=== PATIENT | female | born 1940 | race Caucasian/White ===

== ENCOUNTER 2017-10-04 19:32 | Observation (INO) ==
[2017-10-04] MEDS ORDERED: 0.9 % Sodium Chloride 1,000 ML IVC ONE (19:53)
[2017-10-04] MEDS ORDERED: Ondansetron 4 MG/2 ML VIAL IVP ONE (19:53)
[2017-10-04 20:19] LABS: Basophils % 0.1 %; Hematocrit 43.2 % (35.3-44.9); Hemoglobin 14.5 g/dL (11.5-15.4); Immature Granulocytes % 0.3 % (0-4); Lymphocytes # 0.9 K/mcL (0.6-4.6); Lymphocytes % 6.9 %; Mean Corpuscular HGB Conc 33.6 g/dL (31.6-35.5); Mean Corpuscular Hemoglobin 31.8 pg (28.0-33.3); Mean Corpuscular Volume 94.7 fL (83.0-100.0); Mean Platelet Volume 11.6 fL (9.4-12.4); Monocytes # 0.6 K/mcL (0.0-1.3); Monocytes % 4.2 %; Neutrophils # 11.5 K/mcL (1.6-8.9); Platelet Count 198 K/mcL (140-400); Red Blood Count 4.56 M/mcL (3.82-4.97); Red Cell Distribution Width 12.2 % (11.5-14.5); Segmented Neutrophils % 88.5 %
[2017-10-04 20:29] LABS: Bilirubin,Urine Negative (Negative); Blood,Urine Small (Negative); Clarity,Urine Clear (Clear); Color,Urine Yellow (Yellow); Glucose,Urine (UA) 100 mg/dL (Normal); Ketones,Urine 80 mg/dL (Negative); Leukocyte Esterase,Urine Negative (Negative); Nitrite,Urine Negative (Negative); Protein,Urine 100 mg/dL (Neg-Trace); Specific Gravity,Urine 1.019 (1.010-1.025); Urobilinogen,Urine Normal (Normal)
[2017-10-04 20:31] LABS: Bacteria,Urine None Seen per hpf (None-Few); Hyaline Casts,Urine None Seen per lpf (None-Few); RBC,Urine 15-30 per hpf (0-3); Squamous Epithelial Cell,Urine Many per lpf (None-Few); WBC,Urine 0-3 per hpf (0-3)
--- NOTE | 2017-10-04 20:32 | Emergency Department Note ---
Disposition Clinical Impression: Dehydration Disposition: Still a Patient Referrals: John Alanis DO [Primary Care Provider] - General Adult HPI - General Chief complaint: ED Weakness Stated complaint: Weakness Time Seen by Provider: 10/04/17 19:53 Source: patient, family, EMS Limitations: other - History of Present Illness Pain Scale: 0 - Related Data Home Medications Medication Instructions Recorded Confirmed Calcium Carbonate/Vitamin D3 1 each PO DAILY 04/16/15 04/16/15 [Calcium 500+D Tablet Chew] Donepezil [Aricept] 5 mg PO HS 04/16/15 04/16/15 Naproxen [Naprosyn] 220 mg PO Q12H 04/16/15 04/16/15 Raloxifene [Evista] 60 mg PO HS 04/16/15 04/16/15 Sertraline [Zoloft] 50 mg PO DAILY 04/16/15 04/16/15 Simvastatin [Zocor] 40 mg PO HS 04/16/15 04/16/15 Telmisartan [Micardis] 40 mg PO HS 04/16/15 04/16/15 Previous Rx's Medication Instructions Recorded HYDROcodone/Acet 5/325 mg [[place] 2 tab PO Q4H PRN #10 tablet 04/16/15 5-325 mg] Allergies Allergy/AdvReac Type Severity Reaction Status Date / Time No Known Allergies Allergy Verified 04/16/15 10:43 Past Medical History - Past Medical History Medical history: Reports: arthritis, hyperlipidemia, hypertension, osteoporosis Psychiatric history: Reports: depression 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 I agree with the documented findings, disposition and treatment plan as described except to the extent set forth below. I have personally performed a face to face evaluation on this patient. I have reviewed and agree with the care plan. Briefly: 68-year-old female by EMS from private home accompanied by family for "weakness and possible lethargy. Patient had a right eye surgery for retinal detachment with "gas bubble" was introduced into the eye and she is post lying in bed flat with her child face down. They noted this happened on the operation the past 24 hours the patient was just been tired on lack of energy or appetite no vomiting fevers chills shortness breath or chest pain patient denies dysuria. She appears dehydrated and weak but is responsive. Patient will be getting IV normal similar liter bolus screening labs chest x-ray anti- medics. Disposition pending. Time: 20:30 Vital Signs Temperature 98.0 F 10/04/17 19:37 Pulse Rate 68 10/04/17 19:37 Respiratory Rate 14 10/04/17 19:37 Blood Pressure 177/84 10/04/17 19:37 O2 Sat by Pulse Oximetry 99 10/04/17 19:37 Temperature 98.0 F 10/04/17 19:37 Pulse Rate 68 10/04/17 19:37 Respiratory Rate 14 10/04/17 19:37 Blood Pressure 177/84 10/04/17 19:37 O2 Sat by Pulse Oximetry 99 10/04/17 19:37 Oxygen Delivery Oxygen Delivery Room Air Medical Decision Making - Lab Data Result diagrams: 10/04/17 20:08 Lab Results 10/04/17 Range/Units 20:08 WBC 13.0 H (4.3-11.1) K/mcL RBC 4.56 (3.82-4.97) M/mcL Hgb 14.5 (11.5-15.4) g/dL Hct 43.2 (35.3-44.9) % MCV 94.7 (83.0-100.0) fL MCH 31.8 (28.0-33.3) pg MCHC 33.6 (31.6-35.5) g/dL RDW 12.2 (11.5-14.5) % Plt Count 198 (140-400) K/mcL MPV 11.6 (9.4-12.4) fL Immature Gran % 0.3 (0-4) % Seg Neutrophils % 88.5 % Lymphocytes % 6.9 % Monocytes % 4.2 % Eosinophils % 0.0 % Basophils % 0.1 % Neutrophils # 11.5 H (1.6-8.9) K/mcL Lymphocytes # 0.9 (0.6-4.6) K/mcL Monocytes # 0.6 (0.0-1.3) K/mcL Eosinophils # 0.0 (0.0-0.6) K/mcL Basophils # 0.0 (0.0-0.2) K/mcL
[2017-10-04 20:40] LABS: Alanine Aminotransferase 13 Units/L (7-52); Albumin 4.2 g/dL (3.5-5.7); Albumin/Globulin Ratio 1.8 (1.1-2.2); Alkaline Phosphatase 69 Units/L (34-104); Aspartate Amino Transferase 22 Units/L (13-39); BUN/Creatinine Ratio 15 (6-26); Bilirubin,Total 0.6 mg/dL (0.3-1.0); Blood Urea Nitrogen 9 mg/dL (8-23); Calcium 8.9 mg/dL (8.6-10.3); Carbon Dioxide 26 mEq/L (23-29); Chloride 99 mEq/L (98-107); Globulin 2.3 g/dL (2.4-3.5); Glucose 146 mg/dL (70-105); Osmolality,Calculated 275 (280-300); Potassium 4.1 mEq/L (3.5-5.1); Sodium 132 mEq/L (136-145); Total Protein 6.5 g/dL (6.4-8.9); eGFR For Non-African Americans > 60 (> 60)
[2017-10-04 20:41] LABS: Troponin I < 0.03 ng/mL (< 0.04)
--- NOTE | 2017-10-04 21:47 | Emergency Department Note ---
Disposition Clinical Impression: Dehydration, Weakness Disposition: Admitted As Inpatient Condition: Fair Time of Disposition: 21:51 General Adult HPI - General Chief complaint: ED Weakness Stated complaint: Weakness Time Seen by Provider: 10/04/17 19:53 Source: patient, family, EMS Mode of arrival: ambulatory Limitations: no limitations, other Nursing Notes Reviewed: Yes Vital Signs Reviewed: Yes - History of Present Illness HPI Narrative: Patient is a 76-year-old female with a past medical history of dementia and recent right eye surgery presenting to the emergency department by squad for the evaluation of generalized weakness associated with nausea and vomiting. According to family yesterday the patient was at her baseline and active and today she did not get out of bed and also had multiple episodes of dry heaving with no emesis. Patient states that she generally does not feel well denies any pain at this time but admits to nausea. Family states that patient is mentally at her baseline however she is weak. No focal neurological deficits, fevers, chills, chest pain, shortness of breath, abdominal pain, urinary symptoms or diarrhea. She is instructed to remain on her right side and lateral , position due to the procedure she had on her right eye for retinal detachment. Pain Scale: 0 - Related Data Home Medications Medication Instructions Recorded Confirmed Calcium Carbonate/Vitamin D3 1 each PO DAILY 04/16/15 04/16/15 [Calcium 500+D Tablet Chew] Donepezil [Aricept] 5 mg PO HS 04/16/15 04/16/15 Naproxen [Naprosyn] 220 mg PO Q12H 04/16/15 04/16/15 Raloxifene [Evista] 60 mg PO HS 04/16/15 04/16/15 Sertraline [Zoloft] 50 mg PO DAILY 04/16/15 04/16/15 Simvastatin [Zocor] 40 mg PO HS 04/16/15 04/16/15 Telmisartan [Micardis] 40 mg PO HS 04/16/15 04/16/15 Previous Rx's Medication Instructions Recorded HYDROcodone/Acet 5/325 mg [[place] 2 tab PO Q4H PRN #10 tablet 04/16/15 5-325 mg] Allergies Allergy/AdvReac Type Severity Reaction Status Date / Time No Known Allergies Allergy Verified 04/16/15 10:43 All systems ED: reviewed and negative except as stated. Review of Systems: As Per HPI Constitutional: Denies: fever, chills Cardiovascular: Denies: chest pain, palpitations Respiratory: Denies: cough, dyspnea Gastrointestinal: Reports: nausea. Denies: abdominal pain, vomiting, diarrhea Genitourinary: Denies: dysuria Integumentary: Denies: rash Neurological: Denies: headache, weakness, numbness, paresthesias, confusion, abnormal gait, vertigo Past Medical History - Past Medical History Attestation: Yes The following information was validated with the patient. 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 Patient has a patch over her right eye. Vital signs are within normal limits except patient is mildly hypertensive. She has appeared generally weak and is laying in bed with the blankets over her body rolled over on her side not highly interactive. HEAD: Normocephalic; atraumatic. EYES: PERRL, no scleral icterus. NOSE: The nose is normal in appearance without rhinorrhea RESP: Normal chest excursion with respiration; breath sounds clear and equal bilaterally; no wheezes, rhonchi, or rales CARD: Regular rhythm, without murmurs, rub or gallop ABD: Non-distended; non-tender, soft,without rigidity, rebound or guarding SKIN: Normal for age and race; warm and dry; no apparent lesions NEUROLOGICAL: Patient is alert and oriented times three. Cranial nerves III- XII are intact. Sensory and motor functions are intact. Strength is 5/5 for flexion and extension in all 4 extremities. Patellar DTRS are equal and intact. Finger to nose testing is equal and normal bilaterally. - General Limitations: other General appearance: alert Course Course Narrative: Plan this time is to evaluate the patient for weakness and search for any signs of infection such as a chest x-ray or urine. We will also evaluate electrolytes due to the family's concern of dehydration as well as a CBC. We will provide her with a liter of normal saline fluids. She has no focal deficits on exam and is oriented 3. Do not believe there is any concern for stroke at this time given that the patient is currently at her baseline with history of dementia. We will do our best to keep her situated on her right side due to her recent retinal surgery in which she had a gas bubble injected into her retina. 21:30 - discussed with the patient's family that her CBC, metabolic panel, EKG, chest x-ray and urine are all unremarkable for any signs of infection or abnormalities causing the patient to be weak or altered. Discussed with the family that the patient appears to have improved after the fluids and she is more awake and interacting. Family states that they think she is at baseline. However after conversations with family they state that they are concerned that they are having a difficult time taking care of her at home with her dementia and that they feel that they need a break or assistance with her in the home and over comfortable taking her home at this time. Discussed plan to admit the patient for social reasons in which she can undergo consultation with a social science professor for placement or home assistance. Vital Signs Temperature 98.0 F 10/04/17 19:37 Pulse Rate 68 10/04/17 19:37 Respiratory Rate 14 10/04/17 19:37 Blood Pressure 177/84 10/04/17 19:37 O2 Sat by Pulse Oximetry 99 10/04/17 19:37 Temperature 98.3 F 10/04/17 23:33 Pulse Rate 74 10/04/17 23:33 Respiratory Rate 15 10/04/17 23:33 Blood Pressure 166/91 10/04/17 23:33 O2 Sat by Pulse Oximetry 92 10/04/17 23:33 Oxygen Delivery Oxygen Delivery Room Air Medical Decision Making - Medical Records Medical records reviewed: Yes I reviewed the patient's medical records. - Lab Data Lab results reviewed: Yes I reviewed the patient's lab results. Result diagrams: 10/04/17 20:08 10/04/17 20:08 Lab Results 10/04/17 10/04/17 10/04/17 Range/Units 20:08 20:08 20:08 WBC 13.0 H (4.3-11.1) K/mcL RBC 4.56 (3.82-4.97) M/mcL Hgb 14.5 (11.5-15.4) g/dL Hct 43.2 (35.3-44.9) % MCV 94.7 (83.0-100.0) fL MCH 31.8 (28.0-33.3) pg MCHC 33.6 (31.6-35.5) g/dL RDW 12.2 (11.5-14.5) % Plt Count 198 (140-400) K/mcL MPV 11.6 (9.4-12.4) fL Immature Gran % 0.3 (0-4) % Seg Neutrophils % 88.5 % Lymphocytes % 6.9 % Monocytes % 4.2 % Eosinophils % 0.0 % Basophils % 0.1 % Neutrophils # 11.5 H (1.6-8.9) K/mcL Lymphocytes # 0.9 (0.6-4.6) K/mcL Monocytes # 0.6 (0.0-1.3) K/mcL Eosinophils # 0.0 (0.0-0.6) K/mcL Basophils # 0.0 (0.0-0.2) K/mcL Sodium 132 L (136-145) mEq/L Potassium 4.1 (3.5-5.1) mEq/L Chloride 99 (98-107) mEq/L Carbon Dioxide 26 (23-29) mEq/L BUN 9 (8-23) mg/dL Creatinine 0.59 L (0.60-1.20) mg/dL Est GFR ( Amer) > 60 (> 60) Est GFR (Non-Af Amer) > 60 (> 60) BUN/Creatinine Ratio 15 (6-26) Glucose 146 H (70-105) mg/dL Calculated Osmolality 275 L (280-300) Lactic Acid 1.8 (0.5-2.2) mmol/L Calcium 8.9 (8.6-10.3) mg/dL Total Bilirubin 0.6 (0.3-1.0) mg/dL AST 22 (13-39) Units/L ALT 13 (7-52) Units/L Alkaline Phosphatase 69 (34-104) Units/L Troponin I < 0.03 (< 0.04) ng/mL Serum Total Protein 6.5 (6.4-8.9) g/dL Albumin 4.2 (3.5-5.7) g/dL Globulin 2.3 L (2.4-3.5) g/dL Albumin/Globulin Ratio 1.8 (1.1-2.2) Urine Color (Yellow) Urine Clarity (Clear) Urine pH (5.0-8.0) pH Units Ur Specific [place] (1.010-1.025) Urine Protein (Neg-Trace) mg/dL Urine Glucose (UA) (Normal) mg/dL Urine Ketones (Negative) mg/dL Urine Blood (Negative) Urine Nitrite (Negative) Urine Bilirubin (Negative) Urine Urobilinogen (Normal) mg/dL Ur Leukocyte Esterase (Negative) Urine Microscopic RBC (0-3) per hpf Urine Microscopic WBC (0-3) per hpf Ur Squamous Epith Cells (None-Few) per lpf Urine Bacteria (None-Few) per hpf Hyaline Casts (None-Few) per lpf Ur Culture Indicated? (NO) 10/04/17 Range/Units 20:22 WBC (4.3-11.1) K/mcL RBC (3.82-4.97) M/mcL Hgb (11.5-15.4) g/dL Hct (35.3-44.9) % MCV (83.0-100.0) fL MCH (28.0-33.3) pg MCHC (31.6-35.5) g/dL RDW (11.5-14.5) % Plt Count (140-400) K/mcL MPV (9.4-12.4) fL Immature Gran % (0-4) % Seg Neutrophils % % Lymphocytes % % Monocytes % % Eosinophils % % Basophils % % Neutrophils # (1.6-8.9) K/mcL Lymphocytes # (0.6-4.6) K/mcL Monocytes # (0.0-1.3) K/mcL Eosinophils # (0.0-0.6) K/mcL Basophils # (0.0-0.2) K/mcL Sodium (136-145) mEq/L Potassium (3.5-5.1) mEq/L Chloride (98-107) mEq/L Carbon Dioxide (23-29) mEq/L BUN (8-23) mg/dL Creatinine (0.60-1.20) mg/dL Est GFR ( Amer) (> 60) Est GFR (Non-Af Amer) (> 60) BUN/Creatinine Ratio (6-26) Glucose (70-105) mg/dL Calculated Osmolality (280-300) Lactic Acid (0.5-2.2) mmol/L Calcium (8.6-10.3) mg/dL Total Bilirubin (0.3-1.0) mg/dL AST (13-39) Units/L ALT (7-52) Units/L Alkaline Phosphatase (34-104) Units/L Troponin I (< 0.04) ng/mL Serum Total Protein (6.4-8.9) g/dL Albumin (3.5-5.7) g/dL Globulin (2.4-3.5) g/dL Albumin/Globulin Ratio (1.1-2.2) Urine Color Yellow (Yellow) Urine Clarity Clear (Clear) Urine pH 7.0 (5.0-8.0) pH Units Ur Specific [place] 1.019 (1.010-1.025) Urine Protein 100 H (Neg-Trace) mg/dL Urine Glucose (UA) 100 H (Normal) mg/dL Urine Ketones 80 H (Negative) mg/dL Urine Blood Small H (Negative) Urine Nitrite Negative (Negative) Urine Bilirubin Negative (Negative) Urine Urobilinogen Normal (Normal) mg/dL Ur Leukocyte Esterase Negative (Negative) Urine Microscopic RBC 15-30 H (0-3) per hpf Urine Microscopic WBC 0-3 (0-3) per hpf Ur Squamous Epith Cells Many H (None-Few) per lpf Urine Bacteria None Seen (None-Few) per hpf Hyaline Casts None Seen (None-Few) per lpf Ur Culture Indicated? NO (NO) - Radiology Data Radiology results reviewed: Yes I reviewed the patient's radiology results. Chest X-Ray 10/04/17 19:53 IMPRESSION: Approximately 13 mm pulmonary nodule within right lung apex. Recommend further evaluation with chest CT, which can be done as an outpatient. No radiographic evidence of acute cardiopulmonary process. Large hiatal hernia with air-fluid levels, new since 2005. This can also be evaluated on chest CT. D/ / 10/04/2017 20:52:29 Rick Cartwright MD / don Interpreting Provider: Rick Cartwright MD - EKG Data EKG #1 EKG attestation: Yes I reviewed and interpreted this EKG. EKG results narrative: EKG done at 19:42 shows sinus rhythm at a rate of 66 bpm. Normal axis. Right bundle branch block consistent with findings on old EKG. No signs of ST elevation, ST depression or Q waves present. No ischemic changes. Unchanged from old EKG done on 04/16/2015.
[2017-10-04] MEDS ORDERED: *HR* Midazolam HCl 2 MG/2 ML VIAL IVP ONE (22:35)
[2017-10-05] MEDS ORDERED: Ondansetron 4 MG/2 ML VIAL IVP PRN (00:10)
[2017-10-05] MEDS: 0.9 % Sodium Chloride 1,000 ML IVC SCH ×3 (00:27→17:40)
[2017-10-05] MEDS ORDERED: Naloxone 0.4 MG/ML INJ IVP PRN (01:00)
[2017-10-05] MEDS ORDERED: Acetaminophen 325 MG TABLET PO PRN (01:13)
--- NOTE | 2017-10-05 01:37 | Internal Med History&Physical ---
Date of Encounter: 10/04/17 Time of Encounter: 23:47 Internal Medicine - H&P: HPI Chief complaint: Generalized Weakness, Nausea, Vomiting Admitted From: Emergency Dept Plans for Post Hospital Care: Transfer Psych Facility History of present illness: Ms. Perez is a 76 year old female who presented to ED today via EMS for generalized weakness, nausea, and vomiting. Patient is somnolent and difficult to get history from at the time of my examination. She is alert and oriented x 2. Most of history is obtained from review of ED records. Patient was at baseline mentation and activity yesterday per family. Today, she had difficulty getting out of bed and had multiple episodes of dry-heaving. According to family, she is at baseline mentation, but with weakness. She recently had surgery on her right eye for retinal detachment. Workup in the ED was completely negative except for some mild dehydration. Patient seemed better after 1L NS bolus, and family agreed she was back to baseline. However, her , whom she lives with at home, stated that he has been having a hard time taking care of her at home with her dementia. He states that he either needs a break or assistance with her at home. He is not comfortable taking her home. ED physician wanted her admitted for social services technician consultation for home health vs SNF/psych placement. Patient was given dose of versed in ED before transfer to floor, and it looks like she is somnolent secondary to that. She is not agitated, but trying to get out of bed. Past Med Surg Social Fam HX - Past Medical History Source: unable to obtain (Unable to perform due to patient condition of dementia /somnolence.), old records reviewed Medical history: arthritis, dementia, hyperlipidemia, hypertension, osteoporosis Additional medical history: osteopenia. cataracts Psychiatric history: depression - Past Surgical History Additional surgical history: right eye surgery - Social History Smoking Status: Never smoker Smokeless Tobacco Status: No Alcohol use: none Drug use: none - Additional Family History Additional family history: Unable to obtain family history from patient due to patient condition of dementia/somnolence. Internal Medicine - H&P: Meds Calcium Carbonate/Vitamin D3 [Calcium 500+D Tablet Chew] 1 each PO DAILY [History] Donepezil [Aricept] 5 mg PO HS 04/16/15 [History] HYDROcodone/Acet 5/325 mg [[place] 5-325 mg] 2 tab PO Q4H PRN #10 tablet 04/16/15 [Rx] Naproxen [Naprosyn] 220 mg PO Q12H 04/16/15 [History] Raloxifene [Evista] 60 mg PO HS 04/16/15 [History] Sertraline [Zoloft] 50 mg PO DAILY 04/16/15 [History] Simvastatin [Zocor] 40 mg PO HS 04/16/15 [History] Telmisartan [Micardis] 40 mg PO HS 04/16/15 [History] 3 Allergy/AdvReac Type Severity Reaction Status Date / Time No Known Allergies Allergy Verified 04/16/15 10:43 All Systems PM: Unable to perform ROS due to patient condition of dementia/somnolence. - Constitutional Vitals: Temp Pulse Resp BP Pulse Ox 98.3 F 74 15 166/91 92 10/04/17 23:33 10/04/17 23:33 10/04/17 23:33 10/04/17 23:33 10/04/17 23:33 General appearance: Present: A&O X 2, no acute distress, underweight. Absent: cooperative, answers questions appropriately - Head Head exam: Present: atraumatic, normocephalic - Eye Additional comments: Right eye with gauze patch over it, unable to fully examine due to patient condition of dementia/somnolence. - ENT Additional comments: Unable to fully examine due to patient condition of dementia/somnolence. - Neck Neck exam general surgery: Present: supple, trachea midline. Absent: lymphadenopathy, tenderness, thyromegaly - Respiratory Respiratory exam: Present: CTAB. Absent: accessory muscle use, rales, rhonchi, wheezes Additional comments: Normal WOB - Cardiovascular Cardiovascular exam: Present: RRR, +S1, +S2. Absent: diastolic murmur, gallop, rubs, systolic murmur Additional comments: No BLE edema - GI/Abdominal GI/Abdominal exam: Present: normal bowel sounds, soft. Absent: distended, hepatomegaly, mass, splenomegaly, tenderness - Neurological Exam Neurological exam: Present: altered, no focal deficits, strengths equal and symetr throughout. Absent: facial droop, speech deficit Additional comments: Unable to fully examine due to patient condition of dementia/somnolence. - Psychiatric Psychiatric exam: Absent: agitated, anxious, depressed Additional comments: Unable to fully examine due to patient condition of dementia/somnolence. - Skin Skin exam: Present: dry, intact, warm. Absent: cyanosis, rash Internal Med - H&P Results - Labs CBC & Chem 7: 10/04/17 20:08 10/04/17 20:08 - Assessment and plan (1) Dehydration Current Visit: Yes Status: Acute Assessment and plan: Continue IV NS at 125 ml/hr. Watch for signs of fluid overload. Recheck labwork in AM. (2) Weakness Current Visit: Yes Status: Acute Assessment and plan: Likely related to dehydration, as she improved with NS bolus in ED. Will obtain PT/OT consult. Will consult SW for SNF/psych placement vs home health. (3) Dementia Current Visit: Yes Status: Chronic Assessment and plan: Patient seems to have progressive interval worsening of her chronic dementia per . At this time, she is somnolent due to receiving versed in ED prior to transfer to floor, so I am unable to fully evaluate her mentation. She not agitated, but trying to get out of bed. Will order 1-on-1 sitter for safety. Start neurochecks Q4H. Will obtain TSH, UDS, and repeat BMP/CBC in AM. Will consult psychiatry in the AM, as she may need evaluation for possible transfer to inpatient geriatric psychiatry. SW has been consulted for discharge planning as per above. Continue home medications after verification. Qualifiers: Dementia type: unspecified type Dementia behavioral disturbance: with behavioral disturbance Qualified Code(s): F03.91 - Unspecified dementia with behavioral disturbance (4) Nausea and vomiting Current Visit: Yes Status: Acute Assessment and plan: Looks to be improved at this time. Start zofran IV PRN nausea/vomiting. Qualifiers: Vomiting type: unspecified Vomiting Intractability: unspecified Qualified Code(s): R11.2 - Nausea with vomiting, unspecified (5) HTN (hypertension) Current Visit: Yes Status: Chronic Assessment and plan: Continue home medications after verification. Qualifiers: Hypertension type: essential hypertension Qualified Code(s): I10 - Essential (primary) hypertension (6) HLD (hyperlipidemia) Current Visit: Yes Status: Chronic Assessment and plan: Continue home medications after verification. Qualifiers: Hyperlipidemia type: mixed hyperlipidemia Qualified Code(s): E78.2 - Mixed hyperlipidemia (7) Arthritis Current Visit: Yes Status: Chronic Assessment and plan: Continue home medications after verification. (8) DVT prophylaxis Current Visit: Yes Status: Acute Assessment and plan: Start SCDs and lovenox 40 mg SQ QD. - Time Spent With Patient Total time spent is greater than 50% in coordination of care (as documented) at patient's floor/unit and/or counseling patient: less than 15 minutes
[2017-10-05 04:46] LABS: Basophils % 0.1 %; Hematocrit 42.8 % (35.3-44.9); Hemoglobin 14.3 g/dL (11.5-15.4); Immature Granulocytes % 1.1 % (0-4); Lymphocytes # 1.4 K/mcL (0.6-4.6); Lymphocytes % 9.7 %; Mean Corpuscular HGB Conc 33.4 g/dL (31.6-35.5); Mean Corpuscular Hemoglobin 31.9 pg (28.0-33.3); Mean Corpuscular Volume 95.5 fL (83.0-100.0); Mean Platelet Volume 12.1 fL (9.4-12.4); Monocytes # 1.1 K/mcL (0.0-1.3); Monocytes % 7.6 %; Platelet Count 224 K/mcL (140-400); Red Blood Count 4.48 M/mcL (3.82-4.97); Red Cell Distribution Width 12.2 % (11.5-14.5); Segmented Neutrophils % 81.5 %
[2017-10-05 05:09] LABS: BUN/Creatinine Ratio 13 (6-26); Blood Urea Nitrogen 7 mg/dL (8-23); Calcium 8.6 mg/dL (8.6-10.3); Carbon Dioxide 23 mEq/L (23-29); Chloride 98 mEq/L (98-107); Glucose 122 mg/dL (70-105); Osmolality,Calculated 271 (280-300); Potassium 3.6 mEq/L (3.5-5.1); Sodium 131 mEq/L (136-145); eGFR For Non-African Americans > 60 (> 60)
[2017-10-05 05:20] LABS: Thyroid Stimulating Hormone 0.723 mcIU/mL (0.340-5.600)
[2017-10-05] MEDS: *HR* Enoxaparin 40 MG/0.4 ML SYRINGE SQ SCH (06:00)
--- NOTE | 2017-10-05 15:58 | Event Note ---
Date of Encounter: 10/05/17 Time of Encounter: 15:52 78-year-old female with past medical history of advanced stage of dementia and recent eye surgery presented with poor oral intake and weakness. Family also reported nausea and vomiting. Patient recent was diagnosed with retinal detachment and surgery was performed at [facility]. Per family, patient mental status has progressively worsened in the past 1 year. her oral intake has significantly decreased in the Past couple days. At the ED, she appears dehydrated, labs revealed mild leukocytosis. Chest x-ray no acute change. She does not have sufficient care at home, so social service was consulted. - Patient symptoms slightly improved with IV hydration. She will likely need ECF placement, however, PT recommended home health care. SS following. - Although she has had a leukocytosis, however, no infectious source was identified at this time. - Continue supportive care, continue IV fluid.
[2017-10-05] MEDS: PrednisoLONE Acetate 1% Opth 5 ML BOTTLE RIGHT EYE SCH ×2 (16:24→20:05)
[2017-10-05] MEDS: Moxifloxacin OPTH Drops 3 ML BOTTLE RIGHT EYE SCH ×2 (16:24→20:05)
--- NOTE | 2017-10-05 17:20 | Electrocardiograph Report ---
[place] [id number] Test Date: 2017-10-04 Pat Name: Paulette Perez Department: 103 Room: 3B46 Gender: F [employer] B[employer]: JOSE : [id number] Requested By: Tawanda Milan Order Number: [id number] Reading MD: Marlen Cook Measurements Intervals [place] Rate: 66 P: 74 ME: 139 QRS: 75 QRSD: 152 T: 58 QT: 467 QTc: 481 Interpretive Statements SINUS RHYTHM RIGHT BUNDLE BRANCH BLOCK [120+ ms QRS DURATION, UPRIGHT V1, 40+ ms S IN I/aVL/V4/V5/V6] Electronically Signed On 10-05-2017 17:18:55 EDT by Marlen Cook
[2017-10-05] MEDS: Atropine 1% Opth Drops 100 DROP/5 ML BOTTLE OP SCH (20:04)
--- NOTE | 2017-10-05 21:34 | Consult Note ---
Date of Encounter: 10/05/17 Time of Encounter: 19:30 Assessment & Recommendation (1) Delirium due to known physiological condition Current visit: Yes Status: Acute (2) Dementia with behavioral disturbance Current visit: Yes Status: Acute Qualifiers: Dementia type: unspecified type Qualified Code(s): F03.91 - Unspecified dementia with behavioral disturbance History of Present Illness Patient: new to practice Requesting Physician: Alex Nieves Reason for consult: dementia vs depresion History of present illness: Ms. Perez is a 76 year old female The patient is a 76-year-old white female. She is accompanied by her daughter. Chief complaint my will feed the dog. History of present illness the patient was admitted for an ophthalmologic evaluation. She had eye surgery but then developed a worsening of her depression. She is not a good historian but her daughter is. Basically the patient had a dementia but was able to dial family members on the phone able to maneuver through familiar environments and was able to take some basic needs for herself however after her eye surgery she suffered a precipitous decline and was much more confused. The patient has been treated for dementia for the past 5 years. However the patient's Aricept was switched to Razadyne. The patient is currently on 4 mg twice a day of Razadyne and has not the improvement the patient has been on Zoloft for years and this is helped. Throughout the period of time there is been a gradual decline in her ability to function but events of the past week or more precipitous. The patient is not eating she has had weight loss. She is not interested in some for self-care. The patient may have had depression in the past but her current presentation is of a rapid decline. She does have a left arm that shakes from time to time. When asked the patient will say that she is eaten when she is not she is overall abulic and has not taken care of herself. The patient does have 2 dogs at home and spends time with them and does not like to be away from them. The daughter's assessment was the patient may not do as well outside of the home environment. CC: Alex Nieves Past Med Surg Social Fam HX - Past Medical History Medical history: arthritis, dementia, hyperlipidemia, hypertension, osteoporosis - Past Psychiatric History Psychiatric history: Reports: other Family psychiatric history: Yes Family History of Suicide: Unknown - Past Surgical History Surgical History: other - Social History Smoking Status: Never smoker Smokeless Tobacco Status: No Alcohol use: none Drug use: none Occupational status: retired Current living situation: Home, With Family Activity Level: Mostly sedentary Recent Out of Country Travel Within the Last 8 Weeks: No Exposure or Possible Exposure to Illness During Travel: No Medications & Allergies Calcium Carbonate/Vitamin D3 [Calcium 500+D Tablet Chew] 1 each PO DAILY [History] Raloxifene [Evista] 60 mg PO HS 04/16/15 [History] Sertraline [Zoloft] 50 mg PO DAILY 04/16/15 [History] Simvastatin [Zocor] 40 mg PO HS 04/16/15 [History] Atropine 1% Opth Drops 1 drop BID 10/05/17 [History] Galantamine HBr [Razadyne] 4 mg PO BID 10/05/17 [History] Moxifloxacin OPTH Drops [Vigamox] 1 drop RIGHT EYE QID 10/05/17 [History] PrednisoLONE Acetate [Prednisolone Acetate] 1 drop OP QID 10/05/17 [History] 3 Allergy/AdvReac Type Severity Reaction Status Date / Time No Known Allergies Allergy Verified 04/16/15 10:43 Review of Systems Psychiatric: Reports: abnormal sleep pattern, change in appetite, confusion Psychiatry Exam - Constitutional Vitals: Temp Pulse Resp BP Pulse Ox 98.4 F 72 16 179/76 96 10/05/17 19:30 10/05/17 20:50 10/05/17 19:30 10/05/17 20:50 10/05/17 19:30 General appearance: age & developmentally appropriate, unkempt, thin - Psychiatric Patient Orientation: Yes Person, Yes Circumstance Level of alertness: Alert Psychomotor activity: Slowed Eye Contact: No Eye Contact Affect description: congruent with mood Speech Volume: Normal Speech pattern: normal rate Language & Vocabulary: consistent with education Thought Process: Intact, Logical, Thought Blocking, [place], Slowed Thinking Thought Content: Yes Intact Perceptual Disturbances: No Auditory hallucinations, No Visual hallucinations Attention Span Ability: Unable to Sustain Attention Fund of knowledge: Yes below average Intelligence Estimate: Below Average Judgment: Limited Insight: Minimal Results - Labs Labs: Laboratory Last Values WBC 14.7 K/mcL (4.3-11.1) H 10/05/17 03:36 RBC 4.48 M/mcL (3.82-4.97) 10/05/17 03:36 Hgb 14.3 g/dL (11.5-15.4) 10/05/17 03:36 Hct 42.8 % (35.3-44.9) 10/05/17 03:36 MCV 95.5 fL (83.0-100.0) 10/05/17 03:36 MCH 31.9 pg (28.0-33.3) 10/05/17 03:36 MCHC 33.4 g/dL (31.6-35.5) 10/05/17 03:36 RDW 12.2 % (11.5-14.5) 10/05/17 03:36 Plt Count 224 K/mcL (140-400) 10/05/17 03:36 MPV 12.1 fL (9.4-12.4) 10/05/17 03:36 Immature Gran % 1.1 % (0-4) 10/05/17 03:36 Seg Neutrophils % 81.5 % 10/05/17 03:36 Lymphocytes % 9.7 % 10/05/17 03:36 Monocytes % 7.6 % 10/05/17 03:36 Eosinophils % 0.0 % 10/05/17 03:36 Basophils % 0.1 % 10/05/17 03:36 Neutrophils # 12.0 K/mcL (1.6-8.9) H 10/05/17 03:36 Lymphocytes # 1.4 K/mcL (0.6-4.6) 10/05/17 03:36 Monocytes # 1.1 K/mcL (0.0-1.3) 10/05/17 03:36 Eosinophils # 0.0 K/mcL (0.0-0.6) 10/05/17 03:36 Basophils # 0.0 K/mcL (0.0-0.2) 10/05/17 03:36 Sodium 131 mEq/L (136-145) L 10/05/17 03:36 Potassium 3.6 mEq/L (3.5-5.1) 10/05/17 03:36 Chloride 98 mEq/L (98-107) 10/05/17 03:36 Carbon Dioxide 23 mEq/L (23-29) 10/05/17 03:36 BUN 7 mg/dL (8-23) L 10/05/17 03:36 Creatinine 0.53 mg/dL (0.60-1.20) L 10/05/17 03:36 Est GFR ( Amer) > 60 (> 60) 10/05/17 03:36 Est GFR (Non-Af Amer) > 60 (> 60) 10/05/17 03:36 BUN/Creatinine Ratio 13 (6-26) 10/05/17 03:36 Glucose 122 mg/dL (70-105) H 10/05/17 03:36 Calculated Osmolality 271 (280-300) L 10/05/17 03:36 Lactic Acid 1.8 mmol/L (0.5-2.2) 10/04/17 20:08 Calcium 8.6 mg/dL (8.6-10.3) 10/05/17 03:36 Magnesium 2.0 mg/dL (1.6-2.6) 10/05/17 03:36 Total Bilirubin 0.6 mg/dL (0.3-1.0) 10/04/17 20:08 AST 22 Units/L (13-39) 10/04/17 20:08 ALT 13 Units/L (7-52) 10/04/17 20:08 Alkaline Phosphatase 69 Units/L (34-104) 10/04/17 20:08 Troponin I < 0.03 ng/mL (< 0.04) 10/04/17 20:08 Serum Total Protein 6.5 g/dL (6.4-8.9) 10/04/17 20:08 Albumin 4.2 g/dL (3.5-5.7) 10/04/17 20:08 Globulin 2.3 g/dL (2.4-3.5) L 10/04/17 20:08 Albumin/Globulin Ratio 1.8 (1.1-2.2) 10/04/17 20:08 TSH 0.723 mcIU/mL (0.340-5.600) 10/05/17 03:36 Urine Color Yellow (Yellow) 10/04/17 20:22 Urine Clarity Clear (Clear) 10/04/17 20:22 Urine pH 7.0 pH Units (5.0-8.0) 10/04/17 20:22 Ur Specific [place]man 1.019 (1.010-1.025) 10/04/17 20:22 Urine Protein 100 mg/dL (Neg-Trace) H 10/04/17 20:22 Urine Glucose (UA) 100 mg/dL (Normal) H 10/04/17 20:22 Urine Ketones 80 mg/dL (Negative) H 10/04/17 20:22 Urine Blood Small (Negative) H 10/04/17 20:22 Urine Nitrite Negative (Negative) 10/04/17 20:22 Urine Bilirubin Negative (Negative) 10/04/17 20:22 Urine Urobilinogen Normal mg/dL (Normal) 10/04/17 20:22 Ur Leukocyte Esterase Negative (Negative) 10/04/17 20:22 Urine Microscopic RBC 15-30 per hpf (0-3) H 10/04/17 20:22 Urine Microscopic WBC 0-3 per hpf (0-3) 10/04/17 20:22 Ur Squamous Epith Cells Many per lpf (None-Few) H 10/04/17 20:22 Urine Bacteria None Seen per hpf (None-Few) 10/04/17 20:22 Hyaline Casts None Seen per lpf (None-Few) 10/04/17 20:22 Ur Culture Indicated? NO (NO) 10/04/17 20:22 Consult Discharge Plan - Plan Referrals: John Alanis DO [Primary Care Provider] - 10/07/17 9:00 am
[2017-10-06] MEDS: 0.9 % Sodium Chloride 1,000 ML IVC SCH ×2 (03:01→08:46)
[2017-10-06] MEDS: *HR* Enoxaparin 40 MG/0.4 ML SYRINGE SQ SCH (05:31)
[2017-10-06 06:15] LABS: Basophils % 0.2 %; Eosinophils % 0.1 %; Hematocrit 41.3 % (35.3-44.9); Immature Granulocytes % 0.2 % (0-4); Lymphocytes # 1.6 K/mcL (0.6-4.6); Lymphocytes % 14.9 %; Mean Corpuscular HGB Conc 33.9 g/dL (31.6-35.5); Mean Corpuscular Hemoglobin 31.3 pg (28.0-33.3); Mean Corpuscular Volume 92.4 fL (83.0-100.0); Mean Platelet Volume 12.1 fL (9.4-12.4); Monocytes # 0.9 K/mcL (0.0-1.3); Monocytes % 8.6 %; Neutrophils # 8.2 K/mcL (1.6-8.9); Platelet Count 213 K/mcL (140-400); Red Blood Count 4.47 M/mcL (3.82-4.97); Red Cell Distribution Width 12.2 % (11.5-14.5)
[2017-10-06 06:32] LABS: BUN/Creatinine Ratio 15 (6-26); Blood Urea Nitrogen 8 mg/dL (8-23); Carbon Dioxide 25 mEq/L (23-29); Chloride 100 mEq/L (98-107); Glucose 110 mg/dL (70-105); Osmolality,Calculated 279 (280-300); Sodium 135 mEq/L (136-145); eGFR For Non-African Americans > 60 (> 60)
[2017-10-06] MEDS: Atropine 1% Opth Drops 100 DROP/5 ML BOTTLE OP SCH (08:45)
[2017-10-06] MEDS: Moxifloxacin OPTH Drops 3 ML BOTTLE RIGHT EYE SCH (08:45)
[2017-10-06] MEDS: PrednisoLONE Acetate 1% Opth 5 ML BOTTLE RIGHT EYE SCH (08:45)
[2017-10-06] MEDS ORDERED: CALCIUM CARBONATE PO SCH (09:00)
[2017-10-06] MEDS ORDERED: VITAMIN D3 PO SCH (09:00)
[2017-10-06 09:31] LABS: Amphetamine Screen,Urine Negative ng/mL (Cutoff=1000); Barbiturate Screen,Urine Negative ng/mL (Cutoff=200); Benzodiazepines Screen,Urine Negative ng/mL (Cutoff=200); Cannabinoid Screen,Urine Negative ng/mL (Cutoff = 50); Cocaine Screen,Urine Negative ng/mL (Cutoff= 300); Opiate Screen,Urine Negative ng/mL (Cutoff=300); Phencyclidine Screen,Urine Negative ng/mL (Cutoff=25)
--- NOTE | 2017-10-06 12:11 | Discharge Summary ---
- NOTES TO OUTPATIENT PROVIDER Notes to Outpatient Provider: Titrate Namenda- 5mg po BID x 1 week, 10mg po daily x 1 week, then 10mg po BID if tolerated. Titrate Razadyne- 8mg po BID for 30 days, then may be incrased to 12mg po BID, can cause nausea and dizziness. We also discussed Megace for poor po intake, can start at your discretion once at SNF. Date of Encounter: 10/06/17 Time of Encounter: 09:20 - Discharge Diagnosis (1) Dehydration Priority: Secondary Status: Resolved Assessment and Plan: Secondary to nausea and vomiting, as well as chronically poor po intake per history. Improved, pt appears to be euvolemic, labs are stable. Continue to encourage po fluid intake after discharge. (2) Weakness Priority: Secondary Status: Acute Assessment and Plan: Likely related to dehydration, as she improved with NS bolus in ED. Pt will be discharged for PT/OT at [facility]. (3) Dementia Priority: Secondary Status: Chronic Assessment and Plan: Patient seems to have progressive worsening of her chronic dementia per daughter this a.m, daughter states that she has become increasingly worse over the last year. Pt is drowsy, but awakens easily and answers questions appropriately. Pt has been evaluated by psychiatry, Namenda has been added and will be titrated over 2 weeks to maximum dose. Continue to monitor for safety. Qualifiers: Dementia type: unspecified type Dementia behavioral disturbance: with behavioral disturbance Qualified Code(s): F03.91 - Unspecified dementia with behavioral disturbance (4) Nausea and vomiting Priority: Primary Status: Acute Assessment and Plan: Resolved. Qualifiers: Vomiting type: unspecified Vomiting Intractability: unspecified Qualified Code(s): R11.2 - Nausea with vomiting, unspecified (5) HTN (hypertension) Priority: Secondary Status: Chronic Assessment and Plan: Continue home medications, well controlled in the hospital. Qualifiers: Hypertension type: essential hypertension Qualified Code(s): I10 - Essential (primary) hypertension (6) HLD (hyperlipidemia) Priority: Secondary Status: Chronic Assessment and Plan: Chronic. Continue home medications. Qualifiers: Hyperlipidemia type: mixed hyperlipidemia Qualified Code(s): E78.2 - Mixed hyperlipidemia (7) Arthritis Priority: Secondary Status: Chronic Assessment and Plan: Continue home medications. Chronic. (8) DVT prophylaxis Priority: Secondary Status: Acute Assessment and Plan: Start SCDs and lovenox 40 mg SQ QD. Hospital course: Ms. Perez is a 76 year old female with past medical history including dementia , hypertension, hyperlipidemia, arthritis. Patient admitted for nausea and vomiting, dehydration, weakness. Patient had recent detached retina with surgical repair 5 days ago, family reports declining since that time. She was found at home to nausea and vomiting 3 days ago at home, as well as encephalopathy, was unable to recover with by mouth fluids at home. She was brought to the emergency department for admission. Labs and vitals remained stable throughout, mentation has returned to baseline. Family reports overall decline in mentation over the last year, as well as poor by mouth intake. Patient will be discharged to SNF for physical therapy with the intent to return home. Discharge discussed with: patient, family - Time Spent with Patient Total time spent providing and/or coordinating discharge services: Less than 30 minutes - Discharge Medications Prescriptions: Galantamine [Razadyne] 8 mg PO BID #14 tablet Memantine [Namenda] 5 mg PO BID #10 tablet Home Medications: Calcium Carbonate/Vitamin D3 [Calcium 500+D Tablet Chew] 1 each PO DAILY [History] Raloxifene [Evista] 60 mg PO HS 04/16/15 [History] Sertraline [Zoloft] 50 mg PO DAILY 04/16/15 [History] Simvastatin [Zocor] 40 mg PO HS 04/16/15 [History] Atropine 1% Opth Drops 1 drop BID 10/05/17 [History] Galantamine HBr [Razadyne] 4 mg PO BID 10/05/17 [History] Moxifloxacin OPTH Drops [Vigamox] 1 drop RIGHT EYE QID 10/05/17 [History] PrednisoLONE Acetate [Prednisolone Acetate] 1 drop OP QID 10/05/17 [History] Galantamine [Razadyne] 8 mg PO BID #14 tablet 10/06/17 [Rx] Memantine [Namenda] 5 mg PO BID #10 tablet 10/06/17 [Rx] Potassium Chloride 40 meq PO DAILY tab.er.prt 10/06/17 [Rx] Allergies/Adverse Reactions: 3 Allergy/AdvReac Type Severity Reaction Status Date / Time Sulfa (Sulfonamide Allergy unknown Verified 10/06/17 07:09 Antibiotics) Date of admission: 10/04/17 21:58 Primary care physician: John Alanis Consults: 10/05/17 00:10 Consult to Occupational Therapy [CONS] Routine Comment: Evaluate, develop and implement POC Reason for Consult: Dementia. Please evaluate, treat, and make rehab recommendations. Long Term vs Home Health. Thanks. Does patient have active BEDREST order?: No Is patient medically & hemodynamically stable?: Yes Patient assessed for mobility or mobilized this visit?: No Consult to Physical Therapy [CONS] Routine Comment: Evaluate, develop and implement POC Reason for Consult: Dementia. Please evaluate, treat, and make rehab recommendations. Long Term vs Home Health. Thanks. Does patient have active BEDREST order?: No Is patient medically & hemodynamically stable?: Yes Patient assessed for mobility or mobilized this visit?: No Consult to Physical Therapist Aide [CONS] Routine Reason for SW Consult: Long Term Placement vs Home Health 10/05/17 00:53 Consult to Psychiatry [CONS] Routine Consulting Provider: Psychiatry Gianna Reason consult: Sitter/1:1 Altered mental status Agitation Confusion Medication recommendation Other Other reason and/or additional details: Worsening Dementia. Determine need for inpatient geriatric psychiatry. Call Completed: No 10/05/17 01:01 Consult for Pharmacy Education [CONS] Stat Reason for Consult: Please verify home medications. Notify MD when this is completed. Thanks. Call Completed: No Discharging clinician: Larisa Joseph Anticipated date of discharge: 10/06/17 - Constitutional Vitals: Temp Pulse Resp BP Pulse Ox 98.2 F 66 18 155/79 94 10/06/17 11:47 10/06/17 11:47 10/06/17 11:47 10/06/17 11:47 10/06/17 11:47 General appearance: Present: cooperative, A&O X 2, pleasant, no acute distress, underweight, answers questions appropriately - Head Head exam: Present: atraumatic, normal inspection, normocephalic - Eye Eye exam: Present: normal appearance, conjuntiva pink, sclera anicteric - Neck Neck exam general surgery: Present: supple, trachea midline. Absent: lymphadenopathy, tenderness - Respiratory Respiratory exam: Present: CTAB. Absent: accessory muscle use, chest wall tenderness, rales, respiratory distress, rhonchi, wheezes - Cardiovascular Cardiovascular exam: Present: RRR, +S1, +S2. Absent: diastolic murmur, gallop, rubs, systolic murmur - GI/Abdominal GI/Abdominal exam: Present: normal bowel sounds, soft. Absent: distended, hepatomegaly, tenderness - Extremities Exam Extremities exam: Present: normal capillary refill, normal inspection, warm, radial pulses palpable and symmetrical. Absent: calf tenderness, cyanotic, pedal edema, tenderness - Neurological Exam Neurological exam: Present: alert, oriented X3, no focal deficits. Absent: facial droop, speech deficit - Skin Skin exam: Present: dry, intact, normal color, warm. Absent: rash - Patient Status Disposition: Transfer SNF Condition: Good Functional capacity at discharge: uses cane/walker Overall status at discharge: patient is progressing back to baseline - Discharge Instructions Follow Up With: John Alanis DO [Primary Care Provider] - 10/07/17 9:00 am Additional Instructions: See Provider notes for titration of Razadyne and Namenda Consider Megace once transferred to SNF. - Diet and Activity Activity: increase activity as tolerated Diet: low fat, low cholesterol
--- NOTE | 2017-10-06 14:47 | Physician Discharge Referral ---
ExtendedCare Referral Info Transfer To: [place] Provider in Charge after Transfer: PCP Institutional Level of Care: Intermediate - Diagnosis (1) Dehydration Priority: Primary Status: Resolved (2) Weakness Priority: Secondary Status: Acute (3) Dementia Priority: Secondary Status: Chronic (4) Nausea and vomiting Priority: Secondary Status: Acute (5) HTN (hypertension) Priority: Secondary Status: Chronic (6) HLD (hyperlipidemia) Priority: Secondary Status: Chronic (7) Arthritis Priority: Secondary Status: Chronic (8) DVT prophylaxis Priority: Secondary Status: Acute Prognosis: Fair - Transfer Medications Prescriptions: Galantamine [Razadyne] 8 mg PO BID #14 tablet Memantine [Namenda] 5 mg PO BID #10 tablet Home Medications: Calcium Carbonate/Vitamin D3 [Calcium 500+D Tablet Chew] 1 each PO DAILY [History] Raloxifene [Evista] 60 mg PO HS 04/16/15 [History] Sertraline [Zoloft] 50 mg PO DAILY 04/16/15 [History] Simvastatin [Zocor] 40 mg PO HS 04/16/15 [History] Atropine 1% Opth Drops 1 drop BID 10/05/17 [History] Galantamine HBr [Razadyne] 4 mg PO BID 10/05/17 [History] Moxifloxacin OPTH Drops [Vigamox] 1 drop RIGHT EYE QID 10/05/17 [History] PrednisoLONE Acetate [Prednisolone Acetate] 1 drop OP QID 10/05/17 [History] Galantamine [Razadyne] 8 mg PO BID #14 tablet 10/06/17 [Rx] Memantine [Namenda] 5 mg PO BID #10 tablet 10/06/17 [Rx] Potassium Chloride 40 meq PO DAILY tab.er.prt 10/06/17 [Rx] Allergies/Adverse Reactions: 3 Allergy/AdvReac Type Severity Reaction Status Date / Time Sulfa (Sulfonamide Allergy unknown Verified 10/06/17 07:09 Antibiotics) - Respiratory Orders Smoking Cessation: Smoking cessation has been advised. For more information, call the [place] Tobacco Quit Line at 8-616-HHHQ-NOW. - Lab Orders Lab Orders: 2 Step Mantoux Test per State regulation, CBC, U/A, Ian 17, CXR yearly - Ancillary Orders May use pressure relief devices daily prn, May consult with Dentist, Cloth Desizing Range Operator Chief, Construction Helper PRN - Advance Directives Code Status: Full Code - Mobility Orders Chair, Ambulate - Rehabiliation Orders Rehab Potential: Fair Rehab Orders: Sternal Precautions, ROM Exercises, Evaluation for Physical Therapy, Evaluation for Occupational Therapy - Treatments Skin tear care topically daily PRN per policy, May check for fecal impaction rectally daily PRN, Fleet enema rectally every other day PRN cleansing purposes - Diet Orders Regular CERTIFICATION: I certify that the transfer of the above named patient to an Extended Care Facility is necessary for the continuing treatment of the diagnosis listed. The above information is true and accurate reflection of patient's current condition. Confidential - Redisclosure prohibited without a patient's written consent.
[2017-10-06 15:30] VITALS: BP 152/85
== END 2017-10-06 15:36 ==
LOC: 3BNU 19:32 → EMEROO 19:32 → 3BNU 23:02
PROVIDERS: ADMIT Family Medicine; ATTEND Family Medicine

== ENCOUNTER 2017-10-06 19:29 | Observation (INO) ==
[2017-10-06 21:16] LABS: Basophils % 0.3 %; Eosinophils % 0.3 %; Hematocrit 40.9 % (35.3-44.9); Immature Granulocytes % 0.3 % (0-4); Lymphocytes # 1.7 K/mcL (0.6-4.6); Lymphocytes % 14.8 %; Mean Corpuscular HGB Conc 34.2 g/dL (31.6-35.5); Mean Corpuscular Hemoglobin 31.8 pg (28.0-33.3); Mean Platelet Volume 12.4 fL (9.4-12.4); Monocytes # 1.4 K/mcL (0.0-1.3); Monocytes % 12.8 %; Neutrophils # 8.1 K/mcL (1.6-8.9); Platelet Count 214 K/mcL (140-400); Red Cell Distribution Width 12.4 % (11.5-14.5); Segmented Neutrophils % 71.5 %
[2017-10-06 21:28] LABS: BUN/Creatinine Ratio 19 (6-26); Blood Urea Nitrogen 12 mg/dL (8-23); Calcium 9.1 mg/dL (8.6-10.3); Carbon Dioxide 23 mEq/L (23-29); Chloride 105 mEq/L (98-107); Glucose 110 mg/dL (70-105); Osmolality,Calculated 280 (280-300); Potassium 3.3 mEq/L (3.5-5.1); Sodium 135 mEq/L (136-145); eGFR For Non-African Americans > 60 (> 60)
--- NOTE | 2017-10-06 21:47 | Emergency Department Note ---
Disposition Clinical Impression: Delirium due to known physiological condition, Weakness Disposition: Admitted As Inpatient Condition: Good Referrals: John Alanis DO [Partnered Physician] - Forms: ED Satisfaction Letter, Work/School Release Time of Disposition: 23:13 General Adult HPI - General Stated complaint: Thinks she needs admitted for IV Time Seen by Provider: 10/06/17 19:33 Source: patient, family, EMS Limitations: altered mental status Nursing Notes Reviewed: Yes Vital Signs Reviewed: Yes - History of Present Illness HPI Narrative: Patient brought from nursing facility by daughters. They are concerned that patient will not receive the care that they are expecting at the [facility]. They are requesting admission to the hospital again. They are concerned because the patient does not want to eat a significant amount of food. They state that she is weak. Patient has no voiced complaints. Pain Scale: 0 - Related Data Home Medications Medication Instructions Recorded Confirmed Calcium Carbonate/Vitamin D3 1 each PO DAILY 04/16/15 10/05/17 [Calcium 500+D Tablet Chew] Raloxifene [Evista] 60 mg PO HS 04/16/15 10/05/17 Sertraline [Zoloft] 50 mg PO DAILY 04/16/15 10/05/17 Simvastatin [Zocor] 40 mg PO HS 04/16/15 10/05/17 Atropine 1% Opth Drops 1 drop BID 10/05/17 10/05/17 Moxifloxacin OPTH Drops [Vigamox] 1 drop RIGHT EYE QID 10/05/17 10/05/17 PrednisoLONE Acetate [Prednisolone 1 drop OP QID 10/05/17 10/05/17 Acetate] Previous Rx's Medication Instructions Recorded Galantamine [Razadyne] 8 mg PO BID #14 tablet 10/06/17 Memantine [Namenda] 5 mg PO BID #10 tablet 10/06/17 Potassium Chloride 40 meq PO DAILY tab.er.prt 10/06/17 Allergies Allergy/AdvReac Type Severity Reaction Status Date / Time Sulfa (Sulfonamide Allergy unknown Verified 10/06/17 19:33 Antibiotics) Review of Systems: As Per HPI Past Medical History - Past Medical History Attestation: Yes The following information was validated with the patient. 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 - Social History Smoking Status: Never smoker Smokeless Tobacco Status: No Alcohol use: Reports: none Drug use: Reports: none Physical Exam - General Limitations: altered mental status (Patient pleasantly demented.) General appearance: in no apparent distress - Head Head exam: atraumatic, normocephalic, normal inspection - Eye Eye exam: Present: normal appearance, PERRL, EOMI - ENT ENT exam: normal exam, normal oropharynx, mucous membranes moist - Neck Neck exam: Present: normal inspection, full ROM, trachea midline - Chest Chest inspection: Present: normal inspection, symmetric chest wall rise - Respiratory Respiratory exam: Present: normal lung sounds bilaterally. Absent: respiratory distress, accessory muscle use - Cardiovascular Cardiovascular exam: Present: regular rate, normal rhythm, normal heart sounds - Abdominal Exam Abdominal exam: Present: soft, Non-Tender. Absent: tenderness, distention, guarding, rebound, rigidity - Extremities Exam Extremities exam: Present: normal inspection, full ROM, normal capillary refill. Absent: tenderness, pedal edema - Neurological Exam Neurological exam: Present: alert, other (Pleasantly demented) - Psychiatric Psychiatric exam: Present: normal affect, normal mood - Skin Skin exam: Present: warm, dry, intact, normal color Course Course Narrative: Female patient presenting to emergency department with HER-2 daughters. Patient is pleasantly demented. She has no complaints currently. Daughter states that the patient was discharged from this facility today. [facility] which [facility] for [facility]. They were concerned because the patient did not still have an IV in her and they did not believe that she would be able to eat. He states that she did eat some toast while there. They are concerned for deconditioning. She does have a history of dementia. She had a retinal detachment surgery on 6 days ago and her mental status has declined significantly since then. He stated that she was here and had IV fluids and started to get better however they do not believe she had a long enough stay in the hospital. They are concerned because the patient did not want to eat or drink and that she did not have an IV with fluids going. The patient has no complaints currently at this time. Her mucous membranes are moist. She does not appear to be in distress. I attempted to do education with the family to discuss their expectations at the nursing facility. They expressed that they were told that they could not care for the patient they are they did not have enough staff so they came back to the emergency department. Patient's lung sounds are clear heart tones are normal. She has no pain to palpation of her abdomen. We did get basic labs. There are no gross abnormalities. I discussed the patient with the hospitalist who is agreeable to admission for placement at a different facility. I discussed this with the family. The one daughter does appear to express understanding however the other daughter does not understand. I did spend an extensive amount of time in the room attempting to explain dementia and its course as well as the possibility of the patient mental status getting better versus staying the same and they stated that they understood however when I returned the one daughter was very angry. The daughter states that they are not able to stay with her mother at night and she lives with her who also is unable to provide strict to care for her. - Reevaluation(s) Reevaluation #1: Patient reassessed. I again spoke with the family at length about the expectations of admission and possible placement. One sister does appear to understand the duration and that we will continue to treat her mother the other sister however gets very defensive whenever you discuss the mother's treatment. I did discuss that I do hope that the patient mental status improved significantly however there is a possibility that due to her dementia she will continue to decline. The daughter then stated "my mother has a long life ahead of her." She expressed that she does not believe that we are treating her appropriately because she is "old." I assured her that we are treating her and that we will continue to treat her however due to her course of dementia that there is a possibility that she will stay confused. We will admit patient to the hospital and have a social work consult. I did discuss this patient with the hospitalist. The family states that they did give the patient her nighttime meds with the exception of her Namenda. She did receive her nighttime eyedrops as well. Time: 22:09 Vital Signs Temperature 97.9 F 10/06/17 19:34 Pulse Rate 72 10/06/17 19:34 Respiratory Rate 16 10/06/17 19:34 Blood Pressure 138/82 10/06/17 19:34 O2 Sat by Pulse Oximetry 95 10/06/17 19:34 Temperature 98.2 F 10/06/17 23:06 Pulse Rate 63 10/06/17 23:06 Respiratory Rate 15 10/06/17 23:06 Blood Pressure 136/78 10/06/17 23:06 O2 Sat by Pulse Oximetry 96 10/06/17 23:06 Oxygen Delivery Oxygen Delivery Room Air Medical Decision Making - Medical Records Medical records reviewed: Yes I reviewed the patient's medical records. - Lab Data Lab results reviewed: Yes I reviewed the patient's lab results. Result diagrams: 10/06/17 20:39 10/06/17 20:39 Lab Results 10/06/17 10/06/17 Range/Units 20:39 20:39 WBC 11.3 H (4.3-11.1) K/mcL RBC 4.40 (3.82-4.97) M/mcL Hgb 14.0 (11.5-15.4) g/dL Hct 40.9 (35.3-44.9) % MCV 93.0 (83.0-100.0) fL MCH 31.8 (28.0-33.3) pg MCHC 34.2 (31.6-35.5) g/dL RDW 12.4 (11.5-14.5) % Plt Count 214 (140-400) K/mcL MPV 12.4 (9.4-12.4) fL Immature Gran % 0.3 (0-4) % Seg Neutrophils % 71.5 % Lymphocytes % 14.8 % Monocytes % 12.8 % Eosinophils % 0.3 % Basophils % 0.3 % Neutrophils # 8.1 (1.6-8.9) K/mcL Lymphocytes # 1.7 (0.6-4.6) K/mcL Monocytes # 1.4 H (0.0-1.3) K/mcL Eosinophils # 0.0 (0.0-0.6) K/mcL Basophils # 0.0 (0.0-0.2) K/mcL Sodium 135 L (136-145) mEq/L Potassium 3.3 L (3.5-5.1) mEq/L Chloride 105 (98-107) mEq/L Carbon Dioxide 23 (23-29) mEq/L BUN 12 (8-23) mg/dL Creatinine 0.63 (0.60-1.20) mg/dL Est GFR ( Amer) > 60 (> 60) Est GFR (Non-Af Amer) > 60 (> 60) BUN/Creatinine Ratio 19 (6-26) Glucose 110 H (70-105) mg/dL Calculated Osmolality 280 (280-300) Calcium 9.1 (8.6-10.3) mg/dL
[2017-10-06] MEDS ORDERED: Naloxone 0.4 MG/ML INJ IVP PRN (22:14)
[2017-10-06] MEDS ORDERED: Potassium Chloride Elixir 20 MEQ/15 ML UDC PO ONE (22:31)
--- NOTE | 2017-10-06 22:41 | Emergency Department Note ---
Disposition Clinical Impression: Delirium due to known physiological condition, Weakness Disposition: Admitted As Inpatient Condition: Good Time of Disposition: 23:13 General Adult HPI - General Chief complaint: ED General Medical Stated complaint: Thinks she needs admitted for IV Time Seen by Provider: 10/06/17 19:33 Source: patient, family, EMS Limitations: altered mental status Nursing Notes Reviewed: Yes Vital Signs Reviewed: Yes - History of Present Illness Pain Scale: 0 - Related Data Home Medications Medication Instructions Recorded Confirmed Calcium Carbonate/Vitamin D3 1 each PO DAILY 04/16/15 10/06/17 [Calcium 500+D Tablet Chew] Raloxifene [Evista] 60 mg PO HS 04/16/15 10/06/17 Sertraline [Zoloft] 50 mg PO DAILY 04/16/15 10/06/17 Simvastatin [Zocor] 40 mg PO HS 04/16/15 10/06/17 Atropine 1% Opth Drops 1 drop OP BID 10/05/17 10/06/17 Moxifloxacin OPTH Drops [Vigamox] 1 drop RIGHT EYE QID 10/05/17 10/06/17 PrednisoLONE Acetate [Prednisolone 1 drop OP QID 10/05/17 10/06/17 Acetate] Previous Rx's Medication Instructions Recorded Galantamine [Razadyne] 8 mg PO BID #14 tablet 10/06/17 Memantine [Namenda] 5 mg PO BID #10 tablet 10/06/17 Potassium Chloride 40 meq PO DAILY tab.er.prt 10/06/17 Allergies Allergy/AdvReac Type Severity Reaction Status Date / Time Sulfa (Sulfonamide Allergy unknown Verified 10/06/17 19:33 Antibiotics) Past Medical History - Past Medical History Medical history: Reports: arthritis, dementia, hyperlipidemia, hypertension, osteoporosis Surgical history: Reports: other 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 history - Social History Smoking Status: Never smoker Smokeless Tobacco Status: No Alcohol use: Reports: none Drug use: Reports: none Physical Exam - General Limitations: altered mental status General appearance: in no apparent distress Course Vital Signs Temperature 97.9 F 10/06/17 19:34 Pulse Rate 72 10/06/17 19:34 Respiratory Rate 16 10/06/17 19:34 Blood Pressure 138/82 10/06/17 19:34 O2 Sat by Pulse Oximetry 95 10/06/17 19:34 Temperature 98.2 F 10/06/17 23:06 Pulse Rate 63 10/06/17 23:06 Respiratory Rate 15 10/06/17 23:06 Blood Pressure 136/78 10/06/17 23:06 O2 Sat by Pulse Oximetry 96 10/06/17 23:06 Oxygen Delivery Oxygen Delivery Room Air Medical Decision Making - Lab Data Lab results reviewed: Yes I reviewed the patient's lab results. Result diagrams: 10/06/17 20:39 10/06/17 20:39 Lab Results 10/06/17 10/06/17 Range/Units 20:39 20:39 WBC 11.3 H (4.3-11.1) K/mcL RBC 4.40 (3.82-4.97) M/mcL Hgb 14.0 (11.5-15.4) g/dL Hct 40.9 (35.3-44.9) % MCV 93.0 (83.0-100.0) fL MCH 31.8 (28.0-33.3) pg MCHC 34.2 (31.6-35.5) g/dL RDW 12.4 (11.5-14.5) % Plt Count 214 (140-400) K/mcL MPV 12.4 (9.4-12.4) fL Immature Gran % 0.3 (0-4) % Seg Neutrophils % 71.5 % Lymphocytes % 14.8 % Monocytes % 12.8 % Eosinophils % 0.3 % Basophils % 0.3 % Neutrophils # 8.1 (1.6-8.9) K/mcL Lymphocytes # 1.7 (0.6-4.6) K/mcL Monocytes # 1.4 H (0.0-1.3) K/mcL Eosinophils # 0.0 (0.0-0.6) K/mcL Basophils # 0.0 (0.0-0.2) K/mcL Sodium 135 L (136-145) mEq/L Potassium 3.3 L (3.5-5.1) mEq/L Chloride 105 (98-107) mEq/L Carbon Dioxide 23 (23-29) mEq/L BUN 12 (8-23) mg/dL Creatinine 0.63 (0.60-1.20) mg/dL Est GFR ( Amer) > 60 (> 60) Est GFR (Non-Af Amer) > 60 (> 60) BUN/Creatinine Ratio 19 (6-26) Glucose 110 H (70-105) mg/dL Calculated Osmolality 280 (280-300) Calcium 9.1 (8.6-10.3) mg/dL Attestation Statement - Attestation Attestation: I, Dario Lynn MD, personally evaluated this patient and discussed their management with the resident physician. I reviewed the resident's note and agree with the documented findings, medical decision making, and plan of care. 76-year-old female who was just discharged from the hospital earlier today after being admitted for some confusion and altered mental status. [facility] Patient returns tonight with family and about her placement. They do not feel that the rehabilitation facility could provide adequate care and protection for the patient. Concerned about her not eating or drinking and falling. They also mentioned that they do not feel she was ready to be discharged and felt she needed more time in the hospital. They are requesting she be readmitted to the hospital and feel she needs IV fluids. On examination patient is a well-developed thin elderly female in no acute distress. She is alert and cooperative. No cyanosis or diaphoresis. Breath sounds are clear and equal bilaterally. Heart regular rate and rhythm. Abdomen soft and nontender with normal bowel sounds. Labs reviewed. The hospitalist, Dr. Simeon, was consulted and accepted admission of the patient.
--- NOTE | 2017-10-06 23:01 | Internal Med History&Physical ---
Date of Encounter: 10/07/17 Time of Encounter: 22:50 Internal Medicine - H&P: HPI Chief complaint: Weakness, failure to thrive History of present illness: Ms. Perez is a 76 year old female with omh if hypertension,dementia, hyperlipidemia was recently discharged today from the hospital s/p being admitted for dehydration secondary to nausea and vomiting. She had received Iv fluids and was discharged to a SNF today. Per the family, however, patient was unable to stand up at the SNF and no assistance was provided when a qureshi was rung. They also complained she is still, weak, dehydrated and unable to ambulate independently which she was doing on thursday prior to falling sick and that's why they brought her to back to the hospital. Past Med Surg Social Fam HX - Past Medical History Medical history: arthritis, dementia, hyperlipidemia, hypertension, osteoporosis Additional medical history: osteopenia. cataracts Psychiatric history: other - Past Surgical History Surgical History: other Additional surgical history: right eye surgery - Social History Smoking Status: Never smoker Smokeless Tobacco Status: No Alcohol use: none Drug use: none Internal Medicine - H&P: Meds Calcium Carbonate/Vitamin D3 [Calcium 500+D Tablet Chew] 1 each PO DAILY [History] Raloxifene [Evista] 60 mg PO HS 04/16/15 [History] Sertraline [Zoloft] 50 mg PO DAILY 04/16/15 [History] Simvastatin [Zocor] 40 mg PO HS 04/16/15 [History] Atropine 1% Opth Drops 1 drop OP BID 10/05/17 [History] Moxifloxacin OPTH Drops [Vigamox] 1 drop RIGHT EYE QID 10/05/17 [History] PrednisoLONE Acetate [Prednisolone Acetate] 1 drop OP QID 10/05/17 [History] Galantamine [Razadyne] 8 mg PO BID #14 tablet 10/06/17 [Rx] Memantine [Namenda] 5 mg PO BID #10 tablet 10/06/17 [Rx] Potassium Chloride 40 meq PO DAILY tab.er.prt 10/06/17 [Rx] 3 Allergy/AdvReac Type Severity Reaction Status Date / Time Sulfa (Sulfonamide Allergy unknown Verified 10/06/17 19:33 Antibiotics) All Systems PM: A 10-system review of systems was performed and is negative for pertinent findings except as documented above in the HPI. - Constitutional Constitutional: no chills, no fever(s), no night sweats - EENT Eyes: no change in vision, no discharge, no pain, no photophobia Ears: no ear discharge, no ear pain, no tinnitus Nose, mouth and throat: no dysphagia, no nasal discharge, no neck pain, no sore throat - Cardiovascular Cardiovascular ROS IM: no chest pain, no diaphoresis, no dyspnea, no lightheadedness, no palpitations, no syncope - Respiratory Respiratory: no cough, no dyspnea, no wheezing, no excessive phlegm production - Gastrointestinal Gastrointestinal: no abdominal pain, no diarrhea, no hematemesis, no hematochezia, no melena, no nausea, no vomiting - Genitourinary Genitourinary: no change in urinary stream, no dysuria, no flank pain, no hematuria - Musculoskeletal Musculoskeletal ROS IM: no numbness, no tingling - Integumentary Integumentary IM: no rash, no unusual bruising - Neurological Neurological ROS: no confusion, no convulsions, no focal weakness, no numbness, no tingling, no tremor(s) - Hematologic/Lymphatic Hematologic/Lymphatic: no easy bruising - Constitutional Vitals: Temp Pulse Resp BP Pulse Ox 97.9 F 69 20 150/80 95 10/06/17 19:34 10/06/17 22:00 10/06/17 22:43 10/06/17 22:43 10/06/17 22:00 Exam: Pt islethargic on exam. Alert to person - Head Head exam: Present: atraumatic, normocephalic - Eye Eye exam: Present: PERRL, conjuntiva pink, sclera anicteric Pupils: Present: PERRL - Neck Neck exam general surgery: Present: supple, trachea midline. Absent: lymphadenopathy - Respiratory Respiratory exam: Present: CTAB. Absent: accessory muscle use, rales, rhonchi, wheezes - Cardiovascular Cardiovascular exam: Present: RRR, +S1, +S2. Absent: diastolic murmur, gallop, rubs, systolic murmur - GI/Abdominal GI/Abdominal exam: Present: normal bowel sounds, soft, no peritoneal signs. Absent: distended, tenderness - Extremities Exam Extremities exam: Present: warm, radial pulses palpable and symmetrical. Absent : calf tenderness, cyanotic, pedal edema - Neurological Exam Neurological exam: Present: CN II-XII intact, oriented X3, no focal deficits. Absent: pronater drift, facial droop, speech deficit - Skin Skin exam: Present: dry, intact Internal Med - H&P Results - Labs CBC & Chem 7: 10/07/17 04:46 10/07/17 04:46 - Assessment and plan (1) Weakness Current Visit: Yes Status: Acute Assessment and plan: likley 2/2 to dehydration. Give IV fluids, PT consult. Boost to meals. PAtient will need social work consut as family do not want her to return to the SNF ( [facility]) she was discharged to today and prefer home with home PT if/when she' s stronger (2) Dehydration Current Visit: No Status: Resolved Assessment and plan: See #1 (3) Hypokalemia Current Visit: Yes Status: Acute Assessment and plan: Replaced (4) Dementia Current Visit: No Status: Chronic Assessment and plan: Continue namenda Qualifiers: Dementia type: unspecified type Dementia behavioral disturbance: without behavioral disturbance Qualified Code(s): F03.90 - Unspecified dementia without behavioral disturbance (5) Retina disorder Current Visit: Yes Status: Acute Assessment and plan: s/p retinal detachment surgery. Outpatient follow up (6) DVT prophylaxis Current Visit: No Status: Acute Assessment and plan: heparin sc - Time Spent With Patient Total time spent is greater than 50% in coordination of care (as documented) at patient's floor/unit and/or counseling patient:
[2017-10-07] MEDS: 0.9 % Sodium Chloride 1,000 ML IVC SCH (00:31)
[2017-10-07 05:49] LABS: Basophils % 0.4 %; Eosinophils # 0.1 K/mcL (0.0-0.6); Eosinophils % 0.9 %; Hematocrit 41.9 % (35.3-44.9); Hemoglobin 13.9 g/dL (11.5-15.4); Immature Granulocytes % 0.4 % (0-4); Lymphocytes # 1.9 K/mcL (0.6-4.6); Lymphocytes % 22.5 %; Mean Corpuscular HGB Conc 33.2 g/dL (31.6-35.5); Mean Corpuscular Hemoglobin 30.9 pg (28.0-33.3); Mean Corpuscular Volume 93.1 fL (83.0-100.0); Mean Platelet Volume 12.6 fL (9.4-12.4); Monocytes % 12.1 %; Neutrophils # 5.5 K/mcL (1.6-8.9); Platelet Count 184 K/mcL (140-400); Red Cell Distribution Width 12.4 % (11.5-14.5); Segmented Neutrophils % 63.7 %
[2017-10-07 06:08] LABS: BUN/Creatinine Ratio 16 (6-26); Blood Urea Nitrogen 9 mg/dL (8-23); Calcium 8.8 mg/dL (8.6-10.3); Carbon Dioxide 24 mEq/L (23-29); Chloride 107 mEq/L (98-107); Glucose 106 mg/dL (70-105); Magnesium 2.2 mg/dL (1.6-2.6); Osmolality,Calculated 283 (280-300); Phosphorous 1.7 mg/dL (2.7-4.5); Potassium 3.5 mEq/L (3.5-5.1); Sodium 137 mEq/L (136-145); eGFR For Non-African Americans > 60 (> 60)
[2017-10-07] MEDS ORDERED: CALCIUM PO SCH (09:00)
[2017-10-07] MEDS ORDERED: [UNRECOGNIZED DRUG - OTHER] PO SCH (09:00)
[2017-10-07] MEDS: Atropine 1% Opth Drops 100 DROP/5 ML BOTTLE OP SCH ×2 (10:12→21:53)
[2017-10-07] MEDS: Moxifloxacin OPTH Drops 3 ML BOTTLE RIGHT EYE SCH ×4 (10:13→21:49)
[2017-10-07] MEDS: PrednisoLONE Acetate 1% Opth 5 ML BOTTLE BOTH EYES SCH ×4 (10:13→21:51)
--- NOTE | 2017-10-07 17:48 | Internal Med Progress Note ---
Hospitalist Progress Note - Encounter Date of Encounter: 10/07/17 Time of Encounter: 10:08 - Subjective Interval History: No acute events overnight. Daughters at bedside. Patient has no complaints. Daughters state she is not completely back at baseline and looks weak. - Exam Vitals: Temp Pulse Resp BP Pulse Ox 98.5 F 75 14 133/67 95 10/07/17 14:16 10/07/17 14:16 10/07/17 14:16 10/07/17 14:16 10/07/17 14:16 Exam: Gen: Alert on my exam, aware of person, time. Not aware of place. Right eye patch on HEENT: MMM CVS: RRR Lungs: CTAB abd: soft, NT/ND Ext: no edema Skin: warm, dry - Assessment and Plan (1) Weakness Current Visit: Yes Status: Acute Assessment and Plan: Likely from deconditioning Will need PT/OT to re evaluate patient. SW/CM following Need to determine placement. (2) Dehydration Current Visit: No Status: Resolved Assessment and Plan: This appears to be improved. On my exam she appears to have MMM (3) Dementia Current Visit: No Status: Chronic Assessment and Plan: Continue namenda Stable (4) DVT prophylaxis Current Visit: No Status: Acute Assessment and Plan: heparin sc (5) Hypokalemia Current Visit: Yes Status: Acute Assessment and Plan: Replaced (6) Retina disorder Current Visit: Yes Status: Acute Assessment and Plan: s/p retinal detachment surgery. Outpatient follow up - Time Spent with Patient Total time spent is greater than 50% in coordination of care (as documented) at patient's floor/unit and/or counseling patient: Internal Medicine: Result - Labs CBC & Chem 7: 10/07/17 04:46 10/07/17 04:46 Labs: Short CBC 10/07/17 Range/Units 04:46 WBC 8.6 (4.3-11.1) K/mcL Hgb 13.9 (11.5-15.4) g/dL Hct 41.9 (35.3-44.9) % Plt Count 184 (140-400) K/mcL Neutrophils # 5.5 (1.6-8.9) K/mcL BMP 10/07/17 04:46 Sodium 137 Potassium 3.5 Chloride 107 Carbon Dioxide 24 BUN 9 Creatinine 0.55 L Glucose 106 H Calcium 8.8 Consult Discharge Plan - Plan Referrals: John Alanis DO [Primary Care Provider] - (3) Dementia Qualifiers: Dementia type: unspecified type Dementia behavioral disturbance: without behavioral disturbance Qualified Code(s): F03.90 - Unspecified dementia without behavioral disturbance
[2017-10-08] MEDS: 0.9 % Sodium Chloride 1,000 ML IVC SCH ×2 (00:13→08:00)
[2017-10-08 02:00] LABS: BUN/Creatinine Ratio 23 (6-26); Blood Urea Nitrogen 12 mg/dL (8-23); Calcium 8.4 mg/dL (8.6-10.3); Carbon Dioxide 24 mEq/L (23-29); Chloride 108 mEq/L (98-107); Glucose 113 mg/dL (70-105); Osmolality,Calculated 285 (280-300); Phosphorous 2.3 mg/dL (2.7-4.5); Potassium 3.6 mEq/L (3.5-5.1); Sodium 137 mEq/L (136-145); eGFR For Non-African Americans > 60 (> 60)
[2017-10-08] MEDS ORDERED: Potassium Phosphate 44 MEQ in 0.9 % Sodium Chloride 250 ML IVPB ONE (08:41)
[2017-10-08] MEDS ORDERED: amLODIPine 5 MG TABLET PO ONE (08:43)
[2017-10-08] MEDS ORDERED: Cholecalciferol (D-3) 1,000 UNIT TABLET PO SCH (09:00)
[2017-10-08] MEDS: Atropine 1% Opth Drops 100 DROP/5 ML BOTTLE OP SCH ×2 (09:55→21:14)
[2017-10-08] MEDS: PrednisoLONE Acetate 1% Opth 5 ML BOTTLE BOTH EYES SCH ×4 (09:56→21:13)
[2017-10-08] MEDS: Moxifloxacin OPTH Drops 3 ML BOTTLE RIGHT EYE SCH ×4 (09:56→21:13)
--- NOTE | 2017-10-08 15:39 | Discharge Summary ---
<Yamil Crespo W - Last Filed: 10/08/17 15:36> - NOTES TO OUTPATIENT PROVIDER Notes to Outpatient Provider: Concerns of weakness, poor appetite, and dehydration. Date of Encounter: 10/08/17 Time of Encounter: 08:00 - Discharge Diagnosis (1) Weakness Priority: Primary Status: Acute Comments: Patient came from SNF transported by her daughters do to concerns of her being weak and unable to ambulate Possibly due physical deconditioning Outpatient home health care with PT/OT (2) Dehydration Priority: Secondary Status: Resolved Comments: Concern for lack of appetite at SNF Patient was given IV hydration Had improvement of appetite fluids were discontinued (3) Dementia Priority: Secondary Status: Chronic Comments: History of dementia continue namenda appropriate outpatient follow up Qualifiers: Dementia type: unspecified type Dementia behavioral disturbance: without behavioral disturbance Qualified Code(s): F03.90 - Unspecified dementia without behavioral disturbance Hospital course: Ms. Perez is a 76 year old female who presented to the emergency department from a group home home facility. The patient was recently discharged from hospital on 10/06/17 due to dehydration and weakness. This resolved and she was placed in a group home facility. However, at the group home facility and patient was weak, unable to ambulate, and had a poor appetite. The patient was also not receiving IV fluids. Daughters of the patient were concerned and brought her into the emergency department on 10/07/17. Patient was admitted to the hospital. Patient received IV fluids. Patient was continued on home medications. Patient and her family work with social work for future placement or home health care. This was consulted to physical therapy. Patient had a regular diet with ensure nutritional supplementation. She had a good appetite during her stay. Discharge discussed with: social work - Time Spent with Patient Total time spent providing and/or coordinating discharge services: Greater than 30 minutes - Discharge Medications Home Medications: Calcium Carbonate/Vitamin D3 [Calcium 500+D Tablet Chew] 1 each PO DAILY [History] Raloxifene [Evista] 60 mg PO HS 04/16/15 [History] Sertraline [Zoloft] 50 mg PO DAILY 04/16/15 [History] Simvastatin [Zocor] 40 mg PO HS 04/16/15 [History] Atropine 1% Opth Drops 1 drop OP BID 10/05/17 [History] Moxifloxacin OPTH Drops [Vigamox] 1 drop RIGHT EYE QID 10/05/17 [History] PrednisoLONE Acetate [Prednisolone Acetate] 1 drop OP QID 10/05/17 [History] Galantamine [Razadyne] 8 mg PO BID #14 tablet 10/06/17 [Rx] Memantine [Namenda] 5 mg PO BID #10 tablet 10/06/17 [Rx] Potassium Chloride 40 meq PO DAILY tab.er.prt 10/06/17 [Rx] Allergies/Adverse Reactions: 3 Allergy/AdvReac Type Severity Reaction Status Date / Time Sulfa (Sulfonamide Allergy unknown Verified 10/06/17 19:33 Antibiotics) Date of admission: 10/06/17 21:56 Primary care physician: John Alanis Consults: 10/06/17 22:50 Consult to Physical Therapy [CONS] Routine Comment: Evaluate, develop and implement POC Reason for Consult: weakness Does patient have active BEDREST order?: No Is patient medically & hemodynamically stable?: No Patient assessed for mobility or mobilized this visit?: No 10/06/17 22:51 Consult to Polysom Tech [CONS] Routine Reason for SW Consult: disposition- family do not like residential Discharging clinician: Yamil Crespo Anticipated date of discharge: 10/08/17 - Constitutional Vitals: Temp Pulse Resp BP Pulse Ox 98.5 F 77 16 125/69 95 10/08/17 11:23 10/08/17 11:23 10/08/17 11:23 10/08/17 11:23 10/08/17 11:23 General appearance: Present: cooperative, pleasant, no acute distress, underweight - Head Head exam: Present: atraumatic, normocephalic - Eye Eye exam: Present: EOMI, normal appearance, PERRL - ENT ENT exam: Present: mucous membranes moist - Respiratory Respiratory exam: Present: CTAB. Absent: rales, respiratory distress, rhonchi, stridor, wheezes - Cardiovascular Cardiovascular exam: Present: RRR, +S1, +S2. Absent: +S3, +S4 - GI/Abdominal GI/Abdominal exam: Present: normal bowel sounds, soft. Absent: firm, guarding, rigid, tenderness - Psychiatric Psychiatric exam: Present: normal affect, normal mood Additional comments: Did not know the course of her hospitalization. But seemed unconcerned with this fact - Patient Status Disposition: Home Health Service Condition: Good Overall status at discharge: patient is back to baseline - Discharge Instructions Follow Up With: John Alanis DO [Primary Care Provider] - 10/16/17 10:00 am Forms: ED Satisfaction Letter, Work/School Release - Diet and Activity Activity: increase activity as tolerated Diet: advance to your usual diet <Dylan Phillips - Last Filed: 10/11/17 22:09> Date of Encounter: 10/11/17 - Discharge Diagnosis (1) Weakness Status: Acute (2) Dehydration Status: Resolved (3) Dementia Status: Chronic Qualifiers: Dementia type: unspecified type Dementia behavioral disturbance: without behavioral disturbance Qualified Code(s): F03.90 - Unspecified dementia without behavioral disturbance (4) DVT prophylaxis Status: Acute (5) Hypokalemia Status: Acute (6) Retina disorder Status: Acute Hospital course: Ms. Perez is a 76 year old female - Time Spent with Patient Total time spent providing and/or coordinating discharge services: Date of admission: 10/06/17 21:56 Primary care physician: John Alanis Consults: 10/06/17 22:50 Consult to Physical Therapy [CONS] Routine Comment: Evaluate, develop and implement POC Reason for Consult: weakness Does patient have active BEDREST order?: No Is patient medically & hemodynamically stable?: No Patient assessed for mobility or mobilized this visit?: No 10/06/17 22:51 Consult to Polysom Tech [CONS] Routine Reason for SW Consult: disposition- family do not like residential - Constitutional Vitals: Temp Pulse Resp BP Pulse Ox 98.8 F 71 14 134/72 94 10/09/17 06:26 10/09/17 06:26 10/09/17 06:26 10/09/17 06:26 10/09/17 06:26 - Attending Attestation I examined this patient and my medical decision-making was reviewed with the Resident Physician. I agree with the documented findings, disposition and treatment plan as described except to the extent set forth below. Patient doing significantly well on day of discharge. She states her appetite has been better than it has in a while, months. She will be discharged home with [facility] and family is arranging for close supervision at home.
--- NOTE | 2017-10-08 16:18 | Physician Discharge Referral ---
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 For more information, call the [place] Tobacco Quit Line at 9-655-ICPY-NOW. - Services Needed Following services are medically necessary services: Nursing, Home Health Aide, Physical Therapy, Occupational Therapy - Transfer Medications Home Medications: Calcium Carbonate/Vitamin D3 [Calcium 500+D Tablet Chew] 1 each PO DAILY [History] Raloxifene [Evista] 60 mg PO HS 04/16/15 [History] Sertraline [Zoloft] 50 mg PO DAILY 04/16/15 [History] Simvastatin [Zocor] 40 mg PO HS 04/16/15 [History] Atropine 1% Opth Drops 1 drop OP BID 10/05/17 [History] Moxifloxacin OPTH Drops [Vigamox] 1 drop RIGHT EYE QID 10/05/17 [History] PrednisoLONE Acetate [Prednisolone Acetate] 1 drop OP QID 10/05/17 [History] Galantamine [Razadyne] 8 mg PO BID #14 tablet 10/06/17 [Rx] Memantine [Namenda] 5 mg PO BID #10 tablet 10/06/17 [Rx] Potassium Chloride 40 meq PO DAILY tab.er.prt 10/06/17 [Rx] Allergies/Adverse Reactions: 3 Allergy/AdvReac Type Severity Reaction Status Date / Time Sulfa (Sulfonamide Allergy unknown Verified 10/06/17 19:33 Antibiotics) Certification: Further, I certify that my clinical findings support that this patient is homebound (i.e. absences from home require considerable and taxing effort and are for medical reasons or christianity services or infrequently or short duration when for other reasons) because: Homebound Reason: Patient requires assistance of a person or device to safely leave home Attestation: My signature below is to certify that this patient is under my care and that I, or nurse practitioner, or a physician's cafeteria assistant working with me, has a face-to -face encounter with this patient.
[2017-10-08] MEDS ORDERED: Acetaminophen 325 MG TABLET PO PRN (20:46)
[2017-10-09 06:32] VITALS: BP 134/72
--- NOTE | 2017-10-09 08:12 | Event Note ---
Date of Encounter: 10/09/17 Time of Encounter: 08:10 She was discharged yesterday but stayed overnight, and left early this morning prior to being examined. VS and labs reviewed, she was hemodynamically stable. She was not examined today. She was stable for discharge yesterday.
== END 2017-10-09 08:00 | disposition home health service (06) ==
LOC: 3ANU 19:29 → EMEROO 19:29 → 3ANU 21:58 → 2ANU 10-07 16:49 → 3ANU 10-07 17:09
PROVIDERS: ADMIT Internal Medicine; ATTEND Internal Medicine

== ENCOUNTER 2018-08-13 09:46 | Inpatient (IN) ==
--- NOTE | 2018-08-13 10:15 | Emergency Department Note ---
Disposition Clinical Impression: Multifocal pneumonia, Ischemic stroke Dementia Qualifiers: Dementia type: unspecified type Dementia behavioral disturbance: without beh avioral disturbance Qualified Code(s): F03.90 - Unspecified dementia without behavioral disturbance Disposition: Admitted As Inpatient Condition: Fair Referrals: Bandar Vázquez [Primary Care Provider] - Forms: ED Satisfaction Letter Time of Disposition: 14:40 General Adult HPI - General Chief complaint: ED Altered Mental Status Stated complaint: weakness Time Seen by Provider: 08/13/18 09:49 Source: patient, EMS Mode of arrival: EMS Limitations: altered mental status Nursing Notes Reviewed: Yes Vital Signs Reviewed: Yes - History of Present Illness HPI Narrative: Paulette Perez is a 77 YOF with a history of dementia who presented to the ED from [facility] due to worsened mental status from baseline and reported O2 saturation of 88% on RA. Per family, patient has had a productive cough for the past 1 1/2 weeks. She has a CXR on 08/03 that was reportedly negative. Yesterday her status acutely worsened as she was more fatigued, confused, weak, and has had no appetite and minimal oral intake. Family states that 2 weeks ago she had an appointment at [facility] and was at baseline mentally and physically, but is much worse today. Patient has been unable to ambulate for the past year, but is experiencing worsened weakness in the past 1- 2 days. Patient and family deny fever, chills, SOB, CP, abdominal pain, N/V/D, new onset facial drooping or slurring of speech. Pt Subjective Complaint: Altered Mental Status Pain Scale: 0 - Related Data Home Medications Medication Instructions Recorded Confirmed Calcium Carbonate/Vitamin D3 1 each PO DAILY 04/16/15 10/06/17 [Calcium 500+D Tablet Chew] Raloxifene [Evista] 60 mg PO HS 04/16/15 10/06/17 Sertraline [Zoloft] 50 mg PO DAILY 04/16/15 10/06/17 Simvastatin [Zocor] 40 mg PO HS 04/16/15 10/06/17 Atropine 1% Opth Drops 1 drop OP BID 10/05/17 10/06/17 Moxifloxacin OPTH Drops [Vigamox] 1 drop RIGHT EYE QID 10/05/17 10/06/17 PrednisoLONE Acetate [Prednisolone 1 drop OP QID 10/05/17 10/06/17 Acetate] Previous Rx's Medication Instructions Recorded Galantamine [Razadyne] 8 mg PO BID #14 tablet 10/06/17 Memantine [Namenda] 5 mg PO BID #10 tablet 10/06/17 Potassium Chloride 40 meq PO DAILY tab.er.prt 10/06/17 Allergies Allergy/AdvReac Type Severity Reaction Status Date / Time Sulfa (Sulfonamide Allergy unknown Verified 10/06/17 19:33 Antibiotics) All systems ED: reviewed and negative except as stated. Past Medical History - Past Medical History Medical history: Reports: arthritis, dementia, hyperlipidemia, hypertension, osteoporosis Surgical history: Reports: other Psychiatric history: Reports: depression, other WEIGHTER history: Reports: no WEIGHTER history - Social History Smoking Status: Never smoker Smokeless Tobacco Status: No Alcohol use: Reports: none Drug use: Reports: none Physical Exam - General Limitations: altered mental status General appearance: in no apparent distress, lethargic, other (oriented to self only) - Head Head exam: atraumatic, normocephalic - Eye Eye exam: Present: normal appearance, EOMI. Absent: scleral icterus, conjunctival injection - Expanded ENT Exam TM/Canal: Cerumen impaction: Bilateral TM Nasal speculum exam: Bilateral: other (dry mucosa) Mouth exam: Present: normal external inspection Throat exam: Present: normal inspection - Neck Neck exam: Present: trachea midline - Respiratory Respiratory exam: Present: other (diminished breath sounds bilaterally). Absent: respiratory distress, wheezes, accessory muscle use - Cardiovascular Cardiovascular exam: Present: regular rate, normal rhythm, +S1, +S2 - Abdominal Exam Abdominal exam: Present: soft, Non-Tender, normal bowel sounds. Absent: distention, guarding - Extremities Exam Extremities exam: Present: normal inspection. Absent: tenderness, pedal edema - Neurological Exam Neurological exam: Present: CN II-XII intact - Expanded Neurological Exam Patient oriented to: Present: person (not place or time) Speech: Present: fluid speech Cerebellar function: finger to nose: Normal Motor strength - LUE: 5/5 Motor strength - RUE: 5/5 Motor strength - LLE: 2/5 Motor strength - RLE: 2/5 - Psychiatric Psychiatric exam: Present: other (hx of dementia, not at baseline per family) - Skin Skin exam: Present: warm, dry, intact. Absent: rash Course - Reevaluation(s) Reevaluation #1: Attempted to place patient on RA, patient desatted to 89 and placed back on 3L NC. Discussed Code Status with family, daughters state that patient's is POA and they are unsure of her Code Status, will attempt to discuss with once he arrives. Time: 10:45 Reevaluation #2: Re-assessment with NIH score of 2. Patient's LE weakness significantly improved from initial assessment. Also discussed code status with patient's (POA), who states patient is a FULL CODE. Time: 14:45 Vital Signs Temperature 98.8 F 08/13/18 09:55 Pulse Rate 88 08/13/18 09:55 Respiratory Rate 20 08/13/18 09:55 Blood Pressure 125/78 08/13/18 09:55 O2 Sat by Pulse Oximetry 97 08/13/18 09:55 Temperature 98.8 F 08/13/18 09:55 Pulse Rate 99 08/13/18 14:03 Respiratory Rate 16 08/13/18 14:03 Blood Pressure 105/51 08/13/18 14:03 O2 Sat by Pulse Oximetry 94 08/13/18 14:03 Oxygen Delivery Oxygen Delivery Nasal Cannula Medical Decision Making - [facility] Narrative Medical decision making narrative: Unclear if confusion due to progressing dementia versus other cause, suspect infectious cause with hx of cough x 1 1/2 weeks with hypoxia today CT Head with concern for possible ischemic stroke, however patient does not have focal deficits. NIH score 2. Will discuss with hospitalist and may consider MRI for further evaluation during admission. CXR with RLL infiltrate. Patient with hypoxia, leukocytosis, baseline dementia, immobile, and at increased risk for resistant infections. Blood cultures ordered. Vanc, Cefepime, and Azithro x1. Lactic acid 0.7 CTA dt pleural effusion, suspected infiltrate, and cough. CTA negative. UA negative for nitrites and leukocyte esterase with many bacteria. Being sent for culture. Current abx will cover for possible UTI. - Medical Records Medical records reviewed: Yes I reviewed the patient's medical records. - Lab Data Lab results reviewed: Yes I reviewed the patient's lab results. Result diagrams: 08/13/18 10:39 08/13/18 10:39 Lab Results 08/13/18 08/13/18 08/13/18 Range/Units 10:39 10:39 11:00 WBC 13.8 H (4.3-11.1) K/mcL RBC 3.93 (3.82-4.97) M/mcL Hgb 12.2 (11.5-15.4) g/dL Hct 37.9 (35.3-44.9) % MCV 96.4 (83.0-100.0) fL MCH 31.0 (28.0-33.3) pg MCHC 32.2 (31.6-35.5) g/dL RDW 12.6 (11.5-14.5) % Plt Count 208 (140-400) K/mcL MPV 11.8 (9.4-12.4) fL Immature Gran % 0.5 (0-4) % Seg Neutrophils % 82.8 % Lymphocytes % 12.0 % Monocytes % 4.3 % Eosinophils % 0.1 % Basophils % 0.3 % Neutrophils # 11.4 H (1.6-8.9) K/mcL Lymphocytes # 1.7 (0.6-4.6) K/mcL Monocytes # 0.6 (0.0-1.3) K/mcL Eosinophils # 0.0 (0.0-0.6) K/mcL Basophils # 0.0 (0.0-0.2) K/mcL Sodium 138 (136-145) mEq/L Potassium 3.7 (3.5-5.1) mEq/L Chloride 104 (98-107) mEq/L Carbon Dioxide 24 (23-29) mEq/L BUN 10 (8-23) mg/dL Creatinine 0.67 (0.60-1.20) mg/dL Est GFR ( Amer) > 60 (> 60) Est GFR (Non-Af Amer) > 60 (> 60) BUN/Creatinine Ratio 15 (6-26) Glucose 100 (70-105) mg/dL Calculated Osmolality 285 (280-300) Lactic Acid (0.5-2.2) mmol/L Calcium 8.9 (8.6-10.3) mg/dL Total Bilirubin 0.6 (0.3-1.0) mg/dL Direct Bilirubin 0.2 (0.0-0.2) mg/dL Indirect Bilirubin 0.4 (0.0-1.2) mg/dL AST 15 (13-39) Units/L ALT 8 (7-52) Units/L Alkaline Phosphatase 82 (34-104) Units/L Troponin I < 0.03 (< 0.04) ng/mL Serum Total Protein 6.7 (6.4-8.9) g/dL Albumin 3.7 (3.5-5.7) g/dL Globulin 3.0 (2.4-3.5) g/dL Albumin/Globulin Ratio 1.2 (1.1-2.2) TSH 0.793 (0.340-5.600) mcIU/mL Urine Color Dark Yellow (Yellow) Urine Clarity Clear (Clear) Urine pH 6.0 (5.0-8.0) pH Units Ur Specific [place] 1.024 (1.010-1.025) Urine Protein Trace (Neg-Trace) mg/dL Urine Glucose (UA) Normal (Normal) mg/dL Urine Ketones 80 H (Negative) mg/dL Urine Blood Trace H (Negative) Urine Nitrite Negative (Negative) Urine Bilirubin Small H (Negative) Urine Urobilinogen Normal (Normal) mg/dL Ur Leukocyte Esterase Negative (Negative) Urine Microscopic RBC 5-15 H (0-3) per hpf Urine Microscopic WBC 3-5 H (0-3) per hpf Ur Squamous Epith Cells Moderate H (None-Few) per lpf Ur Transition Epith Cell Few (None-Few) per hpf Urine Bacteria Many H (None-Few) per hpf Hyaline Casts None Seen (None-Few) per lpf Urine Mucus Many H (Few) Ur Culture Indicated? YES A (NO) 08/13/18 Range/Units 12:46 WBC (4.3-11.1) K/mcL RBC (3.82-4.97) M/mcL Hgb (11.5-15.4) g/dL Hct (35.3-44.9) % MCV (83.0-100.0) fL MCH (28.0-33.3) pg MCHC (31.6-35.5) g/dL RDW (11.5-14.5) % Plt Count (140-400) K/mcL MPV (9.4-12.4) fL Immature Gran % (0-4) % Seg Neutrophils % % Lymphocytes % % Monocytes % % Eosinophils % % Basophils % % Neutrophils # (1.6-8.9) K/mcL Lymphocytes # (0.6-4.6) K/mcL Monocytes # (0.0-1.3) K/mcL Eosinophils # (0.0-0.6) K/mcL Basophils # (0.0-0.2) K/mcL Sodium (136-145) mEq/L Potassium (3.5-5.1) mEq/L Chloride (98-107) mEq/L Carbon Dioxide (23-29) mEq/L BUN (8-23) mg/dL Creatinine (0.60-1.20) mg/dL Est GFR ( Amer) (> 60) Est GFR (Non-Af Amer) (> 60) BUN/Creatinine Ratio (6-26) Glucose (70-105) mg/dL Calculated Osmolality (280-300) Lactic Acid 0.7 (0.5-2.2) mmol/L Calcium (8.6-10.3) mg/dL Total Bilirubin (0.3-1.0) mg/dL Direct Bilirubin (0.0-0.2) mg/dL Indirect Bilirubin (0.0-1.2) mg/dL AST (13-39) Units/L ALT (7-52) Units/L Alkaline Phosphatase (34-104) Units/L Troponin I (< 0.04) ng/mL Serum Total Protein (6.4-8.9) g/dL Albumin (3.5-5.7) g/dL Globulin (2.4-3.5) g/dL Albumin/Globulin Ratio (1.1-2.2) TSH (0.340-5.600) mcIU/mL Urine Color (Yellow) Urine Clarity (Clear) Urine pH (5.0-8.0) pH Units Ur Specific [place] (1.010-1.025) Urine Protein (Neg-Trace) mg/dL Urine Glucose (UA) (Normal) mg/dL Urine Ketones (Negative) mg/dL Urine Blood (Negative) Urine Nitrite (Negative) Urine Bilirubin (Negative) Urine Urobilinogen (Normal) mg/dL Ur Leukocyte Esterase (Negative) Urine Microscopic RBC (0-3) per hpf Urine Microscopic WBC (0-3) per hpf Ur Squamous Epith Cells (None-Few) per lpf Ur Transition Epith Cell (None-Few) per hpf Urine Bacteria (None-Few) per hpf Hyaline Casts (None-Few) per lpf Urine Mucus (Few) Ur Culture Indicated? (NO) - Radiology Data Radiology results reviewed: Yes I reviewed the patient's radiology results.
[2018-08-13] MEDS ORDERED: 0.9 % Sodium Chloride 500 ML IVC ONE (10:27)
[2018-08-13 10:54] LABS: Basophils % 0.3 %; Eosinophils % 0.1 %; Hematocrit 37.9 % (35.3-44.9); Hemoglobin 12.2 g/dL (11.5-15.4); Immature Granulocytes % 0.5 % (0-4); Lymphocytes # 1.7 K/mcL (0.6-4.6); Mean Corpuscular HGB Conc 32.2 g/dL (31.6-35.5); Mean Corpuscular Volume 96.4 fL (83.0-100.0); Mean Platelet Volume 11.8 fL (9.4-12.4); Monocytes # 0.6 K/mcL (0.0-1.3); Monocytes % 4.3 %; Neutrophils # 11.4 K/mcL (1.6-8.9); Platelet Count 208 K/mcL (140-400); Red Blood Count 3.93 M/mcL (3.82-4.97); Red Cell Distribution Width 12.6 % (11.5-14.5); Segmented Neutrophils % 82.8 %; White Blood Count 13.8 K/mcL (4.3-11.1)
[2018-08-13 11:15] LABS: Alanine Aminotransferase 8 Units/L (7-52); Albumin 3.7 g/dL (3.5-5.7); Albumin/Globulin Ratio 1.2 (1.1-2.2); Alkaline Phosphatase 82 Units/L (34-104); Aspartate Amino Transferase 15 Units/L (13-39); BUN/Creatinine Ratio 15 (6-26); Bilirubin,Direct 0.2 mg/dL (0.0-0.2); Bilirubin,Indirect 0.4 mg/dL (0.0-1.2); Bilirubin,Total 0.6 mg/dL (0.3-1.0); Blood Urea Nitrogen 10 mg/dL (8-23); Calcium 8.9 mg/dL (8.6-10.3); Carbon Dioxide 24 mEq/L (23-29); Chloride 104 mEq/L (98-107); Glucose 100 mg/dL (70-105); Osmolality,Calculated 285 (280-300); Potassium 3.7 mEq/L (3.5-5.1); Sodium 138 mEq/L (136-145); Total Protein 6.7 g/dL (6.4-8.9); Troponin I < 0.03 ng/mL (< 0.04); eGFR For African Americans > 60 (> 60); eGFR For Non-African Americans > 60 (> 60)
[2018-08-13 11:24] LABS: Bilirubin,Urine Small (Negative); Blood,Urine Trace (Negative); Clarity,Urine Clear (Clear); Color,Urine Dark Yellow (Yellow); Glucose,Urine (UA) Normal (Normal); Ketones,Urine 80 mg/dL (Negative); Leukocyte Esterase,Urine Negative (Negative); Nitrite,Urine Negative (Negative); Protein,Urine Trace mg/dL (Neg-Trace); Specific Gravity,Urine 1.024 (1.010-1.025); Urobilinogen,Urine Normal (Normal)
[2018-08-13] MEDS ORDERED: Isovue-370 500 ML BOTTLE IVP ONE (11:24)
[2018-08-13 11:28] LABS: Thyroid Stimulating Hormone 0.793 mcIU/mL (0.340-5.600)
[2018-08-13] MEDS ORDERED: Cefepime HCl 2,000 MG in Water for inj. (sterile) 20 ML 10 ML IVP ONE (11:29)
[2018-08-13] MEDS ORDERED: Azithromycin 500 MG in D5% in Water 250 ML IVPB ONE (11:30)
[2018-08-13 11:46] LABS: Squamous Epithelial Cell,Urine Moderate per lpf (None-Few)
[2018-08-13 11:47] LABS: Bacteria,Urine Many per hpf (None-Few); Hyaline Casts,Urine None Seen per lpf (None-Few); Mucus,Urine Many (Few)
[2018-08-13 11:48] LABS: Transitional Epi Cells,Urine Few per hpf (None-Few)
--- NOTE | 2018-08-13 12:49 | Emergency Department Note ---
Disposition Clinical Impression: Multifocal pneumonia, Ischemic stroke Dementia Qualifiers: Dementia type: unspecified type Dementia behavioral disturbance: without beh avioral disturbance Qualified Code(s): F03.90 - Unspecified dementia without behavioral disturbance Disposition: Admitted As Inpatient Condition: Fair Referrals: Bandar Vázquez [Primary Care Provider] - Forms: ED Satisfaction Letter Time of Disposition: 14:40 General Adult HPI - General Chief complaint: ED Altered Mental Status Stated complaint: weakness Time Seen by Provider: 08/13/18 09:49 Source: patient, EMS Mode of arrival: EMS Limitations: altered mental status - History of Present Illness Pain Scale: 0 - Related Data Home Medications Medication Instructions Recorded Confirmed Calcium Carbonate/Vitamin D3 1 each PO DAILY 04/16/15 10/06/17 [Calcium 500+D Tablet Chew] Raloxifene [Evista] 60 mg PO HS 04/16/15 10/06/17 Sertraline [Zoloft] 50 mg PO DAILY 04/16/15 10/06/17 Simvastatin [Zocor] 40 mg PO HS 04/16/15 10/06/17 Atropine 1% Opth Drops 1 drop OP BID 10/05/17 10/06/17 Moxifloxacin OPTH Drops [Vigamox] 1 drop RIGHT EYE QID 10/05/17 10/06/17 PrednisoLONE Acetate [Prednisolone 1 drop OP QID 10/05/17 10/06/17 Acetate] Previous Rx's Medication Instructions Recorded Galantamine [Razadyne] 8 mg PO BID #14 tablet 10/06/17 Memantine [Namenda] 5 mg PO BID #10 tablet 10/06/17 Potassium Chloride 40 meq PO DAILY tab.er.prt 10/06/17 Allergies Allergy/AdvReac Type Severity Reaction Status Date / Time Sulfa (Sulfonamide Allergy unknown Verified 10/06/17 19:33 Antibiotics) Past Medical History - Past Medical History Medical history: Reports: arthritis, dementia, hyperlipidemia, hypertension, osteoporosis Surgical history: Reports: other Psychiatric history: Reports: depression, other PHOTO INTERN history: Reports: no PHOTO INTERN history - Social History Smoking Status: Never smoker Smokeless Tobacco Status: No Alcohol use: Reports: none Drug use: Reports: none Physical Exam - General Limitations: altered mental status General appearance: in no apparent distress, lethargic, other (oriented to self only) Course Vital Signs Temperature 98.8 F 08/13/18 09:55 Pulse Rate 88 08/13/18 09:55 Respiratory Rate 20 08/13/18 09:55 Blood Pressure 125/78 08/13/18 09:55 O2 Sat by Pulse Oximetry 97 08/13/18 09:55 Temperature 98.8 F 08/13/18 09:55 Pulse Rate 99 08/13/18 14:03 Respiratory Rate 16 08/13/18 14:03 Blood Pressure 105/51 08/13/18 14:03 O2 Sat by Pulse Oximetry 94 08/13/18 14:03 Oxygen Delivery Oxygen Delivery Nasal Cannula Medical Decision Making - Lab Data Result diagrams: 08/13/18 10:39 08/13/18 10:39 Lab Results 08/13/18 08/13/18 08/13/18 Range/Units 10:39 10:39 11:00 WBC 13.8 H (4.3-11.1) K/mcL RBC 3.93 (3.82-4.97) M/mcL Hgb 12.2 (11.5-15.4) g/dL Hct 37.9 (35.3-44.9) % MCV 96.4 (83.0-100.0) fL MCH 31.0 (28.0-33.3) pg MCHC 32.2 (31.6-35.5) g/dL RDW 12.6 (11.5-14.5) % Plt Count 208 (140-400) K/mcL MPV 11.8 (9.4-12.4) fL Immature Gran % 0.5 (0-4) % Seg Neutrophils % 82.8 % Lymphocytes % 12.0 % Monocytes % 4.3 % Eosinophils % 0.1 % Basophils % 0.3 % Neutrophils # 11.4 H (1.6-8.9) K/mcL Lymphocytes # 1.7 (0.6-4.6) K/mcL Monocytes # 0.6 (0.0-1.3) K/mcL Eosinophils # 0.0 (0.0-0.6) K/mcL Basophils # 0.0 (0.0-0.2) K/mcL Sodium 138 (136-145) mEq/L Potassium 3.7 (3.5-5.1) mEq/L Chloride 104 (98-107) mEq/L Carbon Dioxide 24 (23-29) mEq/L BUN 10 (8-23) mg/dL Creatinine 0.67 (0.60-1.20) mg/dL Est GFR ( Amer) > 60 (> 60) Est GFR (Non-Af Amer) > 60 (> 60) BUN/Creatinine Ratio 15 (6-26) Glucose 100 (70-105) mg/dL Calculated Osmolality 285 (280-300) Lactic Acid (0.5-2.2) mmol/L Calcium 8.9 (8.6-10.3) mg/dL Total Bilirubin 0.6 (0.3-1.0) mg/dL Direct Bilirubin 0.2 (0.0-0.2) mg/dL Indirect Bilirubin 0.4 (0.0-1.2) mg/dL AST 15 (13-39) Units/L ALT 8 (7-52) Units/L Alkaline Phosphatase 82 (34-104) Units/L Troponin I < 0.03 (< 0.04) ng/mL Serum Total Protein 6.7 (6.4-8.9) g/dL Albumin 3.7 (3.5-5.7) g/dL Globulin 3.0 (2.4-3.5) g/dL Albumin/Globulin Ratio 1.2 (1.1-2.2) TSH 0.793 (0.340-5.600) mcIU/mL Urine Color Dark Yellow (Yellow) Urine Clarity Clear (Clear) Urine pH 6.0 (5.0-8.0) pH Units Ur Specific [place] 1.024 (1.010-1.025) Urine Protein Trace (Neg-Trace) mg/dL Urine Glucose (UA) Normal (Normal) mg/dL Urine Ketones 80 H (Negative) mg/dL Urine Blood Trace H (Negative) Urine Nitrite Negative (Negative) Urine Bilirubin Small H (Negative) Urine Urobilinogen Normal (Normal) mg/dL Ur Leukocyte Esterase Negative (Negative) Urine Microscopic RBC 5-15 H (0-3) per hpf Urine Microscopic WBC 3-5 H (0-3) per hpf Ur Squamous Epith Cells Moderate H (None-Few) per lpf Ur Transition Epith Cell Few (None-Few) per hpf Urine Bacteria Many H (None-Few) per hpf Hyaline Casts None Seen (None-Few) per lpf Urine Mucus Many H (Few) Ur Culture Indicated? YES A (NO) 08/13/18 Range/Units 12:46 WBC (4.3-11.1) K/mcL RBC (3.82-4.97) M/mcL Hgb (11.5-15.4) g/dL Hct (35.3-44.9) % MCV (83.0-100.0) fL MCH (28.0-33.3) pg MCHC (31.6-35.5) g/dL RDW (11.5-14.5) % Plt Count (140-400) K/mcL MPV (9.4-12.4) fL Immature Gran % (0-4) % Seg Neutrophils % % Lymphocytes % % Monocytes % % Eosinophils % % Basophils % % Neutrophils # (1.6-8.9) K/mcL Lymphocytes # (0.6-4.6) K/mcL Monocytes # (0.0-1.3) K/mcL Eosinophils # (0.0-0.6) K/mcL Basophils # (0.0-0.2) K/mcL Sodium (136-145) mEq/L Potassium (3.5-5.1) mEq/L Chloride (98-107) mEq/L Carbon Dioxide (23-29) mEq/L BUN (8-23) mg/dL Creatinine (0.60-1.20) mg/dL Est GFR ( Amer) (> 60) Est GFR (Non-Af Amer) (> 60) BUN/Creatinine Ratio (6-26) Glucose (70-105) mg/dL Calculated Osmolality (280-300) Lactic Acid 0.7 (0.5-2.2) mmol/L Calcium (8.6-10.3) mg/dL Total Bilirubin (0.3-1.0) mg/dL Direct Bilirubin (0.0-0.2) mg/dL Indirect Bilirubin (0.0-1.2) mg/dL AST (13-39) Units/L ALT (7-52) Units/L Alkaline Phosphatase (34-104) Units/L Troponin I (< 0.04) ng/mL Serum Total Protein (6.4-8.9) g/dL Albumin (3.5-5.7) g/dL Globulin (2.4-3.5) g/dL Albumin/Globulin Ratio (1.1-2.2) TSH (0.340-5.600) mcIU/mL Urine Color (Yellow) Urine Clarity (Clear) Urine pH (5.0-8.0) pH Units Ur Specific [place] (1.010-1.025) Urine Protein (Neg-Trace) mg/dL Urine Glucose (UA) (Normal) mg/dL Urine Ketones (Negative) mg/dL Urine Blood (Negative) Urine Nitrite (Negative) Urine Bilirubin (Negative) Urine Urobilinogen (Normal) mg/dL Ur Leukocyte Esterase (Negative) Urine Microscopic RBC (0-3) per hpf Urine Microscopic WBC (0-3) per hpf Ur Squamous Epith Cells (None-Few) per lpf Ur Transition Epith Cell (None-Few) per hpf Urine Bacteria (None-Few) per hpf Hyaline Casts (None-Few) per lpf Urine Mucus (Few) Ur Culture Indicated? (NO) Attestation Statement - Attestation Attestation: I examined this patient and my medical decision-making was reviewed with the Resident Physician. I agree with the documented findings, disposition and treatment plan as described except to the extent set forth below. Patient presents with change from her baseline dementia with weakness and cough. She is hypoxemic as well. Chest x-ray shows, per the interpretation of the radiologist, a right pleural effusion and atelectasis. I am suspicious of infiltrate on my review, which also fits with the clinical picture. However, given her lack of ability to provide a good history, her relative immobility, and pleural effusion with atelectasis versus infiltrate as well as with hypoxemia and a cough, pulmonary and was not is in the differential as well. We are treating for pneumonia to cover drug resistant bacteria given her long-term resident of a long term, but we will rule out PE with a CT scan. Patient will require admission.
[2018-08-13] MEDS ORDERED: Naloxone 0.4 MG/ML INJ IVP PRN (17:44)
[2018-08-13] MEDS ORDERED: Bisacodyl 10 MG RECTAL SUPPOSITORY RC PRN (17:48)
--- NOTE | 2018-08-13 19:00 | Internal Med History&Physical ---
Date of Encounter: 08/13/18 Time of Encounter: 18:00 Internal Medicine - H&P: HPI Chief complaint: Weakness, confusion, cough and worsening lethargy today History of present illness: Ms. Perez is a 77 year old female with pmh of dementia, hypertension, [facility] resident presenting with worsening lethargy and confusion today. Patient was noted to have a cough for the past couple of weeks and has been getting weaker and increasingly more lethargic over the past couple of days. Her daughter says that yesterday, she was barely able to raise her head up and respond to commands. She has also been less active. She was reportedly unresponsive this am and hypoxic and was therefore sent to the ER. She is not able to provide a lot of information due to her dementia. But at bedside she is more alert and more responsive on assessment In the ER, she was given fluids and a CT head and a CT chest was done showing possible stroke and multifocal pneumonia. She is being admitted for further management Past Med Surg Social Fam HX - Past Medical History Medical history: arthritis, dementia, hyperlipidemia, hypertension, osteoporosis Additional medical history: osteopenia. cataracts. detached retina right eye Psychiatric history: depression, other - Past Surgical History Surgical History: other Additional surgical history: right eye surgery - Social History Smoking Status: Never smoker Smokeless Tobacco Status: No Alcohol use: none Drug use: none - Additional Family History Additional family history: Family history was reviewed and noncontributory Internal Medicine - H&P: Meds Calcium Carbonate/Vitamin D3 [Calcium 500+D Tablet Chew] 1 each PO DAILY 04/16/15 [History] Sertraline [Zoloft] 50 mg PO DAILY 04/16/15 [History] Bisacodyl [Gentle Laxative] 10 mg RC DAILY PRN 08/13/18 [History] Brimonidine 0.2% [Alphagan] 1 drop RIGHT EYE TID MDD 2 08/13/18 [History] Dorzolamide HCl/Pf [Dorzolamide 2% Eye Drop] 1 drop RIGHT EYE TID MDD 2 08/13/18 [History] Magnesium Hydroxide [Milk of Magnesia] 400 mg PO DAILY 08/13/18 [History] Memantine [Namenda] 10 mg PO BID 08/13/18 [History] Multivit-Min/Iron/Folic Acid/K [Adults Multivitamin Tablet] 1 tab PO DAILY 08/13/18 [History] Sennosides [Senna] 16.8 mg PO DAILY 08/13/18 [History] Simvastatin [Zocor] 10 mg PO DAILY 08/13/18 [History] Timolol Maleate 0.5% 1 drp BOTH EYES DAILY 08/13/18 [History] Travoprost [Travatan Z] 1 drp BOTH EYES DAILY 08/13/18 [History] Allergy/AdvReac Type Severity Reaction Status Date / Time Sulfa (Sulfonamide Allergy unknown Verified 10/06/17 19:33 Antibiotics) ROS unobtainable: due to mental status All Systems PM: A 10-system review of systems was performed and is negative for pertinent findings except as documented above in the HPI. - Constitutional Vitals: Temp Pulse Resp BP Pulse Ox 98.8 F 96 16 124/113 91 08/13/18 09:55 08/13/18 18:43 08/13/18 18:43 08/13/18 18:43 08/13/18 18:43 Exam: NAD - Head Head exam: Present: atraumatic, normocephalic - Eye Eye exam: Present: PERRL, conjuntiva pink, sclera anicteric Pupils: Present: PERRL - Neck Neck exam general surgery: Present: supple, trachea midline. Absent: lymphadenopathy - Respiratory Respiratory exam: Present: CTAB. Absent: accessory muscle use, rales, rhonchi, wheezes - Cardiovascular Cardiovascular exam: Present: RRR, +S1, +S2. Absent: diastolic murmur, gallop, rubs, systolic murmur - GI/Abdominal GI/Abdominal exam: Present: normal bowel sounds, soft, no peritoneal signs. Absent: distended, tenderness - Extremities Exam Extremities exam: Present: warm, radial pulses palpable and symmetrical. Absent: calf tenderness, cyanotic, pedal edema - Neurological Exam Neurological exam: Present: CN II-XII intact, oriented X3, no focal deficits. Absent: pronater drift, facial droop, speech deficit - Skin Skin exam: Present: dry, intact Internal Med - H&P Results - Labs CBC & Chem 7: 08/13/18 10:39 08/13/18 10:39 Labs: Short CBC 08/13/18 Range/Units 10:39 WBC 13.8 H (4.3-11.1) K/mcL Hgb 12.2 (11.5-15.4) g/dL Hct 37.9 (35.3-44.9) % Plt Count 208 (140-400) K/mcL Neutrophils # 11.4 H (1.6-8.9) K/mcL BMP 08/13/18 10:39 Sodium 138 Potassium 3.7 Chloride 104 Carbon Dioxide 24 BUN 10 Creatinine 0.67 Glucose 100 Calcium 8.9 Cardiac Enzymes 08/13/18 Range/Units 10:39 Troponin I < 0.03 (< 0.04) ng/mL Liver Function 08/13/18 Range/Units 10:39 Total Bilirubin 0.6 (0.3-1.0) mg/dL Direct Bilirubin 0.2 (0.0-0.2) mg/dL AST 15 (13-39) Units/L ALT 8 (7-52) Units/L Alkaline Phosphatase 82 (34-104) Units/L Albumin 3.7 (3.5-5.7) g/dL Urine 08/13/18 Range/Units 11:00 Urine Color Dark Yellow (Yellow) Urine Clarity Clear (Clear) Urine pH 6.0 (5.0-8.0) pH Units Ur Specific [place] 1.024 (1.010-1.025) Urine Protein Trace (Neg-Trace) mg/dL Urine Glucose (UA) Normal (Normal) mg/dL - Impressions ITS Impressions Chest X-Ray 08/13/18 10:23 IMPRESSION: Small right pleural effusion with adjacent atelectasis. Mild pulmonary vascular congestion. D/ / Naima Cartwright MD / Naima Cartwright MD Interpreting Provider: Naima Cartwright MD Head CT 08/13/18 10:25 IMPRESSION: Subtle edema and hypodensity in the left frontal region may be secondary to an acute ischemic event or less likely neoplasm. No evidence of intracranial hemorrhage. RECOMMENDATIONS: Brain MRI with diffusion imaging to rule out acute ischemic stroke. D/ / 08/13/2018 12:26:27 Eleonora Rice MD / don Interpreting Provider: Eleonora Rice MD Chest CTA 08/13/18 11:24 IMPRESSION: No evidence of pulmonary embolism. Multifocal subsegmental airspace opacities primarily within the right lower lobe but to a lesser extent right middle lobe, right upper lobe, and lingular segment left lung. Multifocal pneumonia is favored. Mild compression fracture superior endplate T3 vertebral body-age indeterminate but favored to be old. Please correlate with history. Moderate to large hiatal hernia. Probable benign cysts within the liver. D/ / Kyle Anaya MD / Kyle Anaya MD Interpreting Provider: Kyle Anaya MD - Assessment and Plan (1) Acute respiratory failure with hypoxia Current Visit: Yes Status: Acute Assessment and plan: Pt comes in with lethargy and hypxic respiratory failure likely 2/2 to mult ifocal pneumonia. O2 sat was in the 80s on arrival Has improved. continue antibiotics, o2 supplementation as needed (2) Sepsis Current Visit: Yes Status: Acute Assessment and plan: Likely secndary to multifocal penumonia. Will cover for HCAP as pt is [facility] resident On [facility] Qualifiers: Qualified Code(s): A41.9 - Sepsis, unspecified organism (3) Multifocal pneumonia Current Visit: Yes Status: Acute Assessment and plan: Continue antibiotics (4) Ischemic stroke Current Visit: Yes Status: Acute Assessment and plan: Pt had lethargy and AMS with CT head showing possible stroke Obtain MRI head, echo and carotid ultrasound. Neuro consulted and appreciate recs Start aspirin (5) Dementia Current Visit: Yes Status: Chronic Assessment and plan: Continue home meds Qualifiers: Dementia type: unspecified type Dementia behavioral disturbance: without behavioral disturbance Qualified Code(s): F03.90 - Unspecified dementia without behavioral disturbance (6) HTN (hypertension) Current Visit: Yes Status: Chronic Assessment and plan: Continue home meds Qualifiers: Hypertension type: essential hypertension Qualified Code(s): I10 - Esse ntial (primary) hypertension (7) DVT prophylaxis Current Visit: Yes Status: Acute Assessment and plan: heparin sc - Time Spent With Patient Total time spent is greater than 50% in coordination of care (as documented) at patient's floor/unit and/or counseling patient:
[2018-08-13] MEDS: 0.9 % Sodium Chloride 1,000 ML IVC SCH (19:21)
[2018-08-13] MEDS: Aspirin 81 MG TAB.CHEW PO SCH (22:08)
[2018-08-13] MEDS: Dorzolamide OPTH 10 ML BOTTLE RIGHT EYE SCH (22:22)
--- NOTE | 2018-08-13 22:36 | Electrocardiograph Report ---
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
[2018-08-14] MEDS: Piperacillin/Tazobactam 3.375 GM in 0.9 % Sodium Chloride Mini Bag 100 ML IVPB SCH ×4 (00:20→23:23)
[2018-08-14] MEDS: *HR* Heparin 5,000 UNIT/ML VIAL SQ SCH ×2 (05:57→17:07)
[2018-08-14 07:03] LABS: Basophils % 0.3 %; Eosinophils # 0.2 K/mcL (0.0-0.6); Eosinophils % 2.2 %; Hemoglobin 11.9 g/dL (11.5-15.4); Immature Granulocytes % 0.4 % (0-4); Lymphocytes # 2.1 K/mcL (0.6-4.6); Lymphocytes % 21.7 %; Mean Corpuscular HGB Conc 32.2 g/dL (31.6-35.5); Mean Corpuscular Hemoglobin 31.2 pg (28.0-33.3); Mean Corpuscular Volume 97.1 fL (83.0-100.0); Mean Platelet Volume 11.7 fL (9.4-12.4); Monocytes # 0.5 K/mcL (0.0-1.3); Monocytes % 5.4 %; Neutrophils # 6.9 K/mcL (1.6-8.9); Platelet Count 188 K/mcL (140-400); Red Blood Count 3.81 M/mcL (3.82-4.97); Red Cell Distribution Width 12.5 % (11.5-14.5); White Blood Count 9.8 K/mcL (4.3-11.1)
[2018-08-14 07:22] LABS: BUN/Creatinine Ratio 15 (6-26); Blood Urea Nitrogen 8 mg/dL (8-23); Calcium 8.5 mg/dL (8.6-10.3); Carbon Dioxide 24 mEq/L (23-29); Chloride 106 mEq/L (98-107); Glucose 83 mg/dL (70-105); Magnesium 1.9 mg/dL (1.6-2.6); Osmolality,Calculated 287 (280-300); Phosphorous 3.1 mg/dL (2.7-4.5); Potassium 3.5 mEq/L (3.5-5.1); Sodium 140 mEq/L (136-145); eGFR For African Americans > 60 (> 60); eGFR For Non-African Americans > 60 (> 60)
[2018-08-14] MEDS ORDERED: NON-FORMULARY MEDICATION 1 EACH EACH (Calcium Carbonate/Vitamin D3 [Calcium 500+D Tablet C PO SCH (09:00)
[2018-08-14] MEDS: MOM Conc 10 ML UD.LIQ PO SCH (09:03)
[2018-08-14] MEDS: Sennosides 8.6 MG TABLET PO SCH (09:04)
[2018-08-14] MEDS: Aspirin 81 MG TAB.CHEW PO SCH (09:04)
[2018-08-14] MEDS: Cholecalciferol (D-3) 1,000 UNIT TABLET PO SCH (09:04)
[2018-08-14] MEDS: Multivit/Ca/Min/Fe/FA 1 TAB TABLET PO SCH (09:04)
[2018-08-14] MEDS: Dorzolamide OPTH 10 ML BOTTLE RIGHT EYE SCH ×3 (09:09→20:23)
[2018-08-14] MEDS: Latanoprost 2.5 ML BOTTLE BOTH EYES SCH (09:10)
[2018-08-14] MEDS: 0.9 % Sodium Chloride 1,000 ML IVC SCH (09:57)
--- NOTE | 2018-08-14 10:11 | Internal Med Progress Note ---
Hospitalist Progress Note - Encounter Date of Encounter: 08/14/18 Time of Encounter: 10:00 - Subjective Interval History: No acute events overnight - Exam Vitals: Temp Pulse Resp BP Pulse Ox 98.3 F 70 18 143/90 95 08/14/18 05:15 08/14/18 07:41 08/14/18 07:41 08/14/18 07:41 08/14/18 07:41 Exam: General appearance: Present: A&O X 3, no acute distress Head exam: Present: normocephalic Respiratory exam: Present: CTAB. Absent: accessory muscle use, rales, rhonchi, wheezes Cardiovascular exam: Present: RRR, +S1, +S2. Absent: diastolic murmur, gallop, rubs, systolic murmur GI/Abdominal exam: Soft, NT, ND, +BS Extremities exam: Absent: pedal edema Neurological exam: Present: alert, oriented X3, no focal deficits. Absent: altered - Assessment and Plan (1) Acute respiratory failure with hypoxia Current Visit: Yes Status: Acute Assessment and Plan: Pt comes in with lethargy and hypxic respiratory failure likely 2/2 to multifocal pneumonia. O2 sat was in the 80s on arrival Has improved. continue antibiotics, o2 supplementation as needed (2) Sepsis Current Visit: Yes Status: Acute Assessment and Plan: Likely secndary to multifocal penumonia. Will cover for HCAP as pt is senior care resident On vanc and zosyn (3) Multifocal pneumonia Current Visit: Yes Status: Acute Assessment and Plan: Continue antibiotics (4) Ischemic stroke Current Visit: Yes Status: Acute Assessment and Plan: Pt had lethargy and AMS with CT head showing possible stroke Obtain MRI head, echo and carotid ultrasound. Neuro consulted and appreciate recs Start aspirin. Follow up MRI (5) Dementia Current Visit: Yes Status: Chronic Assessment and Plan: Continue home meds (6) HTN (hypertension) Current Visit: Yes Status: Chronic Assessment and Plan: Continue home meds (7) DVT prophylaxis Current Visit: Yes Status: Acute Assessment and Plan: heparin sc - Time Spent with Patient Total time spent is greater than 50% in coordination of care (as documented) at patient's floor/unit and/or counseling patient: Internal Medicine: Result - Labs CBC & Chem 7: 08/14/18 06:43 08/14/18 06:43 Labs: Short CBC 06/07/19 06/08/19 Range/Units 10:39 06:43 WBC 13.8 H 9.8 (4.3-11.1) K/mcL Hgb 12.2 11.9 (11.5-15.4) g/dL Hct 37.9 37.0 (35.3-44.9) % Plt Count 208 188 (140-400) K/mcL Neutrophils # 11.4 H 6.9 (1.6-8.9) K/mcL BMP 08/13/18 08/14/18 10:39 06:43 Sodium 138 140 Potassium 3.7 3.5 Chloride 104 106 Carbon Dioxide 24 24 BUN 10 8 Creatinine 0.67 0.53 L Glucose 100 83 Calcium 8.9 8.5 L Cardiac Enzymes 08/13/18 Range/Units 10:39 Troponin I < 0.03 (< 0.04) ng/mL Liver Function 08/13/18 Range/Units 10:39 Total Bilirubin 0.6 (0.3-1.0) mg/dL Direct Bilirubin 0.2 (0.0-0.2) mg/dL AST 15 (13-39) Units/L ALT 8 (7-52) Units/L Alkaline Phosphatase 82 (34-104) Units/L Albumin 3.7 (3.5-5.7) g/dL Urine 08/13/18 Range/Units 11:00 Urine Color Dark Yellow (Yellow) Urine Clarity Clear (Clear) Urine pH 6.0 (5.0-8.0) pH Units Ur Specific [place] 1.024 (1.010-1.025) Urine Protein Trace (Neg-Trace) mg/dL Urine Glucose (UA) Normal (Normal) mg/dL - Impressions Impressions Chest X-Ray 08/13/18 10:23 IMPRESSION: Small right pleural effusion with adjacent atelectasis. Mild pulmonary vascular congestion. D/ / Naima Cartwright MD / Naima Cartwright MD Interpreting Provider: Naima Cartwright MD Head CT 08/13/18 10:25 IMPRESSION: Subtle edema and hypodensity in the left frontal region may be secondary to an acute ischemic event or less likely neoplasm. No evidence of intracranial hemorrhage. RECOMMENDATIONS: Brain MRI with diffusion imaging to rule out acute ischemic stroke. D/ / 08/13/2018 12:26:27 Eleonora Rice MD / don Interpreting Provider: Eleonora Rice MD Chest CTA 08/13/18 11:24 IMPRESSION: No evidence of pulmonary embolism. Multifocal subsegmental airspace opacities primarily within the right lower lobe but to a lesser extent right middle lobe, right upper lobe, and lingular segment left lung. Multifocal pneumonia is favored. Mild compression fracture superior endplate T3 vertebral body-age indeterminate but favored to be old. Please correlate with history. Moderate to large hiatal hernia. Probable benign cysts within the liver. D/ / Kyle Anaya MD / Kyle Anaya MD Interpreting Provider: Kyle Anaya MD Consult Discharge Plan - Plan Referrals: Bandar Vázquez [Primary Care Provider] - (2) Sepsis Qualifiers: Qualified Code(s): A41.9 - Sepsis, unspecified organism (5) Dementia Qualifiers: Dementia type: unspecified type Dementia behavioral disturbance: without behavioral disturbance Qualified Code(s): F03.90 - Unspecified dementia without behavioral disturbance (6) HTN (hypertension) Qualifiers: Hypertension type: essential hypertension Qualified Code(s): I10 - Essential (primary) hypertension
[2018-08-14 10:19] LABS: Adenovirus DETECTED (Not Detect); Bordetella Pertussis Not Detected (Not Detect); Chlamydophila pneumoniae Not Detected (Not Detect); Coronavirus 229E Not Detected (Not Detect); Coronavirus HKU1 Not Detected (Not Detect); Coronavirus NL63 Not Detected (Not Detect); Coronavirus OC43 Not Detected (Not Detect); Human Metapneumovirus Not Detected (Not Detect); Human Rhinovirus/Enterovirus DETECTED (Not Detect); Influenza A Subtype 2009 H1 Not Detected (Not Detect); Influenza A Untypeable Not Detected (Not Detect); Influenza B Not Detected (Not Detect); Mycoplasma pneumoniae Not Detected (Not Detect); Parainfluenza Virus 1 Not Detected (Not Detect); Parainfluenza Virus 2 Not Detected (Not Detect); Parainfluenza Virus 3 Not Detected (Not Detect); Parainfluenza Virus 4 Not Detected (Not Detect); Respiratory Syncytial Virus Not Detected (Not Detect)
--- NOTE | 2018-08-14 10:27 | Neurology - Consult Note ---
Date of Encounter: 08/14/18 Time of Encounter: 10:23 Assessment and Plan (1) Ischemic stroke Current Visit: Yes Status: Acute Patient has a known history of dementia however had some acute change in mental status which is likely multifactorial. However believe that the acute pneumonia superimposed on her baseline dementia is more than likely what had occurred. In addition to this she appears to have had an acute subacute left frontal infarct. However we would like to rule out the possibility of an underlying mass lesion. 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 However this possible that she may have a component of normal pressure hydrocephalus. We will defer further workup of this to her primary neurologist after discharge. Otherwise Doppler study revealed nonstenotic plaquing. She should also be maintained on aspirin 81 mg daily for now. Further recommendations will be made pending the outcome of the MRI scan of the brain. History of Present Illness HPI: The chart was reviewed, patient was seen and examined. The bulk of the history was obtained from the patient's daughter who was present. Patient is a very pleasant 77-year-old woman with a prior medical history of dementia and hypertension who is seen for neurologic evaluation secondary to acute mental status changes and an abnormal CT scan of the brain. Patient is currently a [facility] resident who prior to admission had developed upper respiratory symptoms. She got increasingly lethargic over the 2 or 3 days prior to admission. And she had difficulty raising her legs off the bed. She has not been ambulatory for greater than one year likely secondary to dementia and associated gait apraxia. However since admission she was diagnosed with pneumonia and possible urinary tract infection. And her mental status has improved back to baseline. She is alert to person only however. CT scan of the brain revealed an area of hypoattenuation in the left frontal region suspicious for infarct however possibly due to the neoplasm. I did review the CT scan of the brain personally. It also reveals significant periventricular deep white matter changes. There is also hydrocephalus present may be a component of NPH. Past Med Surg Social Fam HX - Past Medical History Medical history: arthritis, dementia, hyperlipidemia, hypertension, osteoporosis Additional medical history: osteopenia. cataracts. detached retina right eye Psychiatric history: depression, other - Past Surgical History Surgical History: other Additional surgical history: right eye surgery, R hip replacement - Social History Smoking Status: Never smoker Smokeless Tobacco Status: No Alcohol use: none Drug use: none - Family History Mother Adopted: No Living Status: Age at : 86 Cause of : dementia Hx Family Cardiac Disorders: No Hx Family Respiratory Disorders: No Hx Family Cancer: No Hx Family GI Disorders: No Hx Family Genitourinary Disorders: No Hx Family Endocrine Disorder: No Hx Family Musculoskeletal Disorders: No Hx Family Neuromuscular Disorders: No Hx Family Autoimmune Disorders: No Father Adopted: No Living Status: Cause of : black lung Hx Family Cardiac Disorders: No Hx Family Respiratory Disorders: Yes (black lung) Hx Family Cancer: No Hx Family GI Disorders: No Hx Family Endocrine Disorder: No Hx Family Musculoskeletal Disorders: No Hx Family Neuromuscular Disorders: No Hx Family Neurologic Disorders: No Hx Family HEENT Disorders: No Hx Family Autoimmune Disorders: No Hx Family Psychosocial Disorders: No Medications and Allergies Calcium Carbonate/Vitamin D3 [Calcium 500+D Tablet Chew] 1 each PO DAILY 0 04/16/15 [History] Acetaminophen [Non-Aspirin] 325 mg PO Q6H PRN 08/13/18 [History] Bisacodyl [Gentle Laxative] 10 mg RC DAILY PRN 08/13/18 [History] Brimonidine 0.2% [Alphagan] 1 drop RIGHT EYE TID MDD 2 08/13/18 [History] Dorzolamide HCl 1 drop RIGHT EYE TID 08/13/18 [History] Magnesium Hydroxide [Milk of Magnesia] 400 mg PO DAILY 08/13/18 [History] Memantine [Namenda] 10 mg PO BID 08/13/18 [History] Mirtazapine 7.5 mg PO DAILY 08/13/18 [History] Multivit-Min/Iron/Folic Acid/K [Adults Multivitamin Tablet] 1 tab PO DAILY 08/13/18 [History] Sennosides [Senna] 16.8 mg PO DAILY 08/13/18 [History] Sertraline [Zoloft] 50 mg PO DAILY 08/13/18 [History] Simvastatin [Zocor] 10 mg PO DAILY 08/13/18 [History] Timolol Maleate 0.5% 1 drp BOTH EYES BID 08/13/18 [History] Travoprost [Travatan Z] 1 drp BOTH EYES DAILY 08/13/18 [History] Allergy/AdvReac Type Severity Reaction Status Date / Time Sulfa (Sulfonamide Allergy unknown Verified 10/06/17 19:33 Antibiotics) ROS unobtainable: due to mental status All Systems: The remainder of the systems were reviewed and are negative Physical Examination - Vital Signs Vital Signs: Initial Vital Signs Temp Pulse Resp BP Pulse Ox 98.8 F 88 20 125/78 97 08/13/18 09:55 08/13/18 09:55 08/13/18 09:55 08/13/18 09:55 08/13/18 09:55 - Exam Exam: General Examination: *CONSTITUTIONAL: normal *GENERAL APPEARANCE OF PATIENT appears healthy and well groomed *EYES: pupils equal, round, reactive to light and accommodation, conjunctiva clear without masses or ulcerations, fundi normal. *CARDIOVASCULAR no peripheral edema, distal temperature normal, dorsalis pedis pulses normal. Refer to vital signs Musculoskeletal: *GAIT AND STATION patient is able to move her legs however is nonambulatory perhaps secondary to gait apraxia. *ASSESSMENT OF MUSCLE STRENGTH IN THE UPPER AND LOWER EXTREMITIES it is difficult to examine patient's strength from a traditional perspective due to difficulty with following commands. However she does seem to have a slight bit of weakness of the right upper extremity compared to the left upper extremity. She has equal strength of both lower extremities in all muscle groups. *MUSCLE TONE IN THE UPPER AND LOWER EXTREMITIES normal. No abnormal movements, fasciculations or atrophy identified. She does have some gegenhalten rigidity. Neurological: *ORIENTATION to person only. She could not tell me the name of the facility *RECURRENT AND REMOTE MEMORY impaired. Patient is not able to give her own history. *ATTENTION AND CONCENTRATION are normal *LANGUAGE FUNCTION she does have some difficulty with motor apraxia, however and there is no expressive or receptive aphasia. *FUND OF KNOWLEDGE is impaired *MENTAL attention span and concentration normal. *CN II optic fundi were normal, no papilledema noted. *CN III,IV, PERRLA patient does have lateral deviation of the right eye, extraocular motility of the left eye is intact. *CN V shows normal sensation and jaw opens symmetrically. *CN VII shows normal facial movement symmetrically, upper and lower bilaterally. *CN VIII shows no significant hearing loss on examination in the office. *CN IX,,X palate elevated symmetrically and normal gag reflex was noted. *CN XI normal strength in the sternocleidomastoid muscles, symmetrical shoulder shrugging. *CN XII tongue protruded in the midline, with normal strength and mo vement. *SENSORY EXAMINATION pinprick sensation intact, and light touch(vibration sense). *REFLEXES: deep tendon reflexes were diminished throughout. *CEREBELLAR TESTING no nystagmus or opsoclonus identified. *PAIN LEVEL 0 Results - Laboratory Findings CBC and BMP: 08/14/18 06:43 08/14/18 06:43 Abnormal lab findings: Abnormal lab results WBC 13.8 K/mcL (4.3-11.1) H 08/13/18 10:39 RBC 3.81 M/mcL (3.82-4.97) L 08/14/18 06:43 11.4 K/mcL (1.6-8.9) H 08/13/18 10:39 0.53 mg/dL (0.60-1.20) L 08/14/18 06:43 Calcium 8.5 mg/dL (8.6-10.3) L 08/14/18 06:43 80 mg/dL (Negative) H 08/13/18 11:00 Trace (Negative) H 08/13/18 11:00 Small (Negative) H 08/13/18 11:00 5-15 per hpf (0-3) H 08/13/18 11:00 3-5 per hpf (0-3) H 08/13/18 11:00 Ur Squamous Epith Cells Moderate per lpf (None-Few) H 08/13/18 11:00 Many per hpf (None-Few) H 08/13/18 11:00 Many (Few) H 08/13/18 11:00 Ur Culture Indicated? YES (NO) A 08/13/18 11:00 DETECTED (Not Detect) A 08/14/18 08:40 Entero/Rhino (PCR) DETECTED (Not Detect) A 08/14/18 08:40 Consult Discharge Plan - Plan Referrals: Bandar Vázquez [Primary Care Provider] -
[2018-08-15 02:12] LABS: Basophils % 0.4 %; Eosinophils # 0.3 K/mcL (0.0-0.6); Eosinophils % 3.5 %; Hematocrit 38.5 % (35.3-44.9); Hemoglobin 12.4 g/dL (11.5-15.4); Immature Granulocytes % 0.2 % (0-4); Lymphocytes # 1.9 K/mcL (0.6-4.6); Lymphocytes % 22.4 %; Mean Corpuscular HGB Conc 32.2 g/dL (31.6-35.5); Mean Corpuscular Hemoglobin 30.5 pg (28.0-33.3); Mean Corpuscular Volume 94.6 fL (83.0-100.0); Mean Platelet Volume 12.1 fL (9.4-12.4); Monocytes # 0.5 K/mcL (0.0-1.3); Monocytes % 6.2 %; Neutrophils # 5.6 K/mcL (1.6-8.9); Platelet Count 205 K/mcL (140-400); Red Blood Count 4.07 M/mcL (3.82-4.97); Red Cell Distribution Width 12.2 % (11.5-14.5); Segmented Neutrophils % 67.3 %; White Blood Count 8.3 K/mcL (4.3-11.1)
[2018-08-15 02:30] LABS: BUN/Creatinine Ratio 16 (6-26); Blood Urea Nitrogen 9 mg/dL (8-23); Calcium 8.6 mg/dL (8.6-10.3); Carbon Dioxide 25 mEq/L (23-29); Chloride 106 mEq/L (98-107); Glucose 85 mg/dL (70-105); Magnesium 2.1 mg/dL (1.6-2.6); Osmolality,Calculated 282 (280-300); Phosphorous 2.5 mg/dL (2.7-4.5); Potassium 3.4 mEq/L (3.5-5.1); Sodium 137 mEq/L (136-145); eGFR For African Americans > 60 (> 60); eGFR For Non-African Americans > 60 (> 60)
[2018-08-15] MEDS: *HR* Heparin 5,000 UNIT/ML VIAL SQ SCH ×2 (05:23→17:27)
[2018-08-15] MEDS: MOM Conc 10 ML UD.LIQ PO SCH (07:34)
[2018-08-15] MEDS: Sennosides 8.6 MG TABLET PO SCH (07:35)
[2018-08-15] MEDS: Multivit/Ca/Min/Fe/FA 1 TAB TABLET PO SCH (07:35)
[2018-08-15] MEDS: Piperacillin/Tazobactam 3.375 GM in 0.9 % Sodium Chloride Mini Bag 100 ML IVPB SCH ×2 (07:35→17:28)
[2018-08-15] MEDS: Aspirin 81 MG TAB.CHEW PO SCH (07:35)
[2018-08-15] MEDS: Cholecalciferol (D-3) 1,000 UNIT TABLET PO SCH (07:35)
[2018-08-15] MEDS: Latanoprost 2.5 ML BOTTLE BOTH EYES SCH (07:37)
[2018-08-15] MEDS: Dorzolamide OPTH 10 ML BOTTLE RIGHT EYE SCH ×3 (07:37→19:42)
--- NOTE | 2018-08-15 09:50 | Internal Med Progress Note ---
Hospitalist Progress Note - Encounter Date of Encounter: 08/15/18 Time of Encounter: 09:45 - Subjective Interval History: No acute evetns overnight. Improved this am - Exam Vitals: Temp Pulse Resp BP Pulse Ox 98.6 F 74 18 150/79 92 08/15/18 06:03 08/15/18 07:17 08/15/18 07:17 08/15/18 07:17 08/15/18 07:17 Exam: General appearance: Present: A&O X 3, no acute distress Head exam: Present: normocephalic Respiratory exam: Present: CTAB. Absent: accessory muscle use, rales, rhonchi, wheezes Cardiovascular exam: Present: RRR, +S1, +S2. Absent: diastolic murmur, gallop, rubs, systolic murmur GI/Abdominal exam: Soft, NT, ND, +BS Extremities exam: Absent: pedal edema Neurological exam: Present: alert, oriented X3, no focal deficits. Absent: altered - Assessment and Plan (1) Acute respiratory failure with hypoxia Current Visit: Yes Status: Acute Assessment and Plan: Pt comes in with lethargy and hypxic respiratory failure likely 2/2 to m ultifocal pneumonia. O2 sat was in the 80s on arrival Has improved. continue antibiotics, o2 supplementation as needed (2) Sepsis Current Visit: Yes Status: Acute Assessment and Plan: Likely secndary to multifocal penumonia. Will cover for HCAP as pt is retirement resident On vanc and zosyn (3) Multifocal pneumonia Current Visit: Yes Status: Acute Assessment and Plan: Continue antibiotics (4) Ischemic stroke Current Visit: Yes Status: Acute Assessment and Plan: Pt had lethargy and AMS with CT head showing possible stroke Obtain MRI head, echo and carotid ultrasound. Neuro consulted and appreciate recs Start aspirin. Follow up MRI (5) Dementia Current Visit: Yes Status: Chronic Assessment and Plan: Continue home meds (6) HTN (hypertension) Current Visit: Yes Status: Chronic Assessment and Plan: Continue home meds (7) DVT prophylaxis Current Visit: Yes Status: Acute Assessment and Plan: heparin sc - Time Spent with Patient Total time spent is greater than 50% in coordination of care (as documented) at patient's floor/unit and/or counseling patient: Internal Medicine: Result - Labs CBC & Chem 7: 08/15/18 01:49 08/15/18 01:49 Labs: Short CBC 08/15/18 Range/Units 01:49 WBC 8.3 (4.3-11.1) K/mcL Hgb 12.4 (11.5-15.4) g/dL Hct 38.5 (35.3-44.9) % Plt Count 205 (140-400) K/mcL Neutrophils # 5.6 (1.6-8.9) K/mcL BMP 08/15/18 01:49 Sodium 137 Potassium 3.4 L Chloride 106 Carbon Dioxide 25 BUN 9 Creatinine 0.55 L Glucose 85 Calcium 8.6 - Impressions Impressions Brain MRI 08/14/18 18:27 IMPRESSION: Extensive small-vessel ischemic change bilaterally. There is no acute infarct or acute hemorrhage. Small focal area of curvilinear low T2 signal along the posterior aspect of the right globe. Correlate with history and/or ophthalmologic exam D/ / Reggie Pak / Reggie Pak Interpreting Provider: Reggie Pak Echocardiogram 08/14/18 18:27 Impressions: LVEF 60%. Moderate left ventricular diastolic dysfunction. Moderate concentric left ventricular hypertrophy. Normal right ventricular structure and function. No evidence of PFO with agitated saline contrast. No significant valvular dysfunction The aortic root is dilated. It measures 3.9cm at the Sinus of Vasalva. Left Ventricular Wall Motion: Rest Echo Findings All wall segments showed normal motion. Findings: Study Quality * Technically adequate exam. ECG Findings * Normal sinus rhythm. Left Ventricle * LVEF 60%. * Normal LV chamber size. * Moderate left ventricular diastolic dysfunction. * Moderate concentric left ventricular hypertrophy. Right Ventricle * Normal right ventricular structure and function. Left Atrium * Normal left atrial size. Right Atrium * Normal right atrial size. Interatrial Septum * No evidence of PFO with agitated saline contrast. Aortic Valve * Trileaflet aortic valve. * Normal aortic valve structure. * No aortic regurgitation. * No aortic stenosis. Mitral Valve * Normal mitral valve structure. * No mitral regurgitation. * No mitral stenosis. Tricuspid Valve * Normal tricuspid valve structure. * Trace tricuspid regurgitation. * No tricuspid stenosis. * No evidence of pulmonary hypertension. Pulmonic Valve * Pulmonic valve not well visualized. Aorta * The aortic root is dilated. It measures 3.9cm at the Sinus of Vasalva. * Pericardium * There is a trivial pericardial effusion present. * There is no echocardiographic evidence of tamponade. IVC * Normal IVC dimensions and inspiratory collapse. Pulmonary Artery * Normal visualized portions of the main pulmonary artery. Consult Discharge Plan - Plan Referrals: Bandar Vázquez [Primary Care Provider] - (2) Sepsis Qualifiers: Qualified Code(s): A41.9 - Sepsis, unspecified organism (5) Dementia Qualifiers: Dementia type: unspecified type Dementia behavioral disturbance: without behavioral disturbance Qualified Code(s): F03.90 - Unspecified dementia without behavioral disturbance (6) HTN (hypertension) Qualifiers: Hypertension type: essential hypertension Qualified Code(s): I10 - Essential (primary) hypertension
[2018-08-15] MEDS: Potassium Chloride Elixir 20 MEQ/15 ML UDC PO SCH ×2 (12:16→17:20)
--- NOTE | 2018-08-15 13:15 | Neurology Progress Note ---
Date of Encounter: 08/15/18 Time of Encounter: 13:13 Assessment and Plan (1) Metabolic encephalopathy Current Visit: Yes Status: Acute Ultimately I feel that baseline changes were due to metabolic encephalopathy associated with the pneumonia. It seems that patient is back to her normal baseline level of functioning now. She is pleasantly confused but is known to have dementia. MRI scan of the brain revealed severe periventricular white matter changes with cortical atrophy and ventriculomegaly as well. I will have her follow-up with Dr. Salas upon discharge for further management of her dementia. I believe that her inability to walk is due to gait apraxia associated with her underlying dementia. Normal pressure hydrocephalus may also be a consideration. I will reevaluate her your request. Subjective Interval history: Chart was reviewed, patient was seen and examined. Patient is laying in bed without any acute distress. Patient's daughter is present. Patient is seemingly back to her normal baseline level of confusion. MRI scan of the brain was completed and does reveal severe chronic periventricular deep white matter changes along with cortical atrophy and ventriculomegaly. My suspicion that the acute mental status changes likely due to the underlying pneumonia. Objective - Constitutional Vitals: Temp Pulse Resp BP Pulse Ox 98.6 F 74 18 150/79 92 08/15/18 06:03 08/15/18 07:17 08/15/18 07:17 08/15/18 07:17 08/15/18 07:17 Exam: Exam: General Examination: *CONSTITUTIONAL: normal *GENERAL APPEARANCE OF PATIENT appears healthy and well groomed *EYES: pupils equal, round, reactive to light and accommodation, conjunctiva clear without masses or ulcerations, fundi normal. *CARDIOVASCULAR no peripheral edema, distal temperature normal, dorsalis pedis pulses normal. Refer to vital signs Musculoskeletal: *GAIT AND STATION patient is able to move her legs however is nonambulatory perhaps secondary to gait apraxia. *ASSESSMENT OF MUSCLE STRENGTH IN THE UPPER AND LOWER EXTREMITIES it is difficult to examine patient's strength from a traditional perspective due to difficulty with following commands. Today she has frequent range of motion of the upper and lower extremities. She seems to have normal strength throughout. *MUSCLE TONE IN THE UPPER AND LOWER EXTREMITIES normal. No abnormal movements, fasciculations or atrophy identified. She does have some gegenhalten rigidity. Neurological: *ORIENTATION to person only. She could not tell me the name of the facility *RECURRENT AND REMOTE MEMORY impaired. Patient is not able to give her own history. *ATTENTION AND CONCENTRATION are normal *LANGUAGE FUNCTION she does have some difficulty with motor apraxia, however and there is no expressive or receptive aphasia. *FUND OF KNOWLEDGE is impaired *MENTAL attention span and concentration normal. *CN II optic fundi were normal, no papilledema noted. *CN III,IV, PERRLA patient does have lateral deviation of the right eye, extraocular motility of the left eye is intact. *CN V shows normal sensation and jaw opens symmetrically. *CN VII shows normal facial movement symmetrically, upper and lower bilaterally. *CN VIII shows no significant hearing loss on examination in the office. *CN IX,,X palate elevated symmetrically and normal gag reflex was noted. *CN XI normal strength in the sternocleidomastoid muscles, symmetrical shoulder shrugging. *CN XII tongue protruded in the midline, with normal strength and movement. *SENSORY EXAMINATION pinprick sensation intact, and light touch(vibration sense). *REFLEXES: deep tendon reflexes were diminished throughout. *CEREBELLAR TESTING no nystagmus or opsoclonus identified. *PAIN LEVEL 0 Results - Laboratory Findings CBC and BMP: 08/15/18 01:49 08/15/18 01:49 Abnormal lab findings: Abnormal lab results WBC 13.8 K/mcL (4.3-11.1) H 08/13/18 10:39 RBC 3.81 M/mcL (3.82-4.97) L 08/14/18 06:43 11.4 K/mcL (1.6-8.9) H 08/13/18 10:39 Potassium 3.4 mEq/L (3.5-5.1) L 08/15/18 01:49 0.55 mg/dL (0.60-1.20) L 08/15/18 01:49 Calcium 8.5 mg/dL (8.6-10.3) L 08/14/18 06:43 Phosphorus 2.5 mg/dL (2.7-4.5) L 08/15/18 01:49 80 mg/dL (Negative) H 08/13/18 11:00 Trace (Negative) H 08/13/18 11:00 Small (Negative) H 08/13/18 11:00 5-15 per hpf (0-3) H 08/13/18 11:00 3-5 per hpf (0-3) H 08/13/18 11:00 Ur Squamous Epith Cells Moderate per lpf (None-Few) H 08/13/18 11:00 Many per hpf (None-Few) H 08/13/18 11:00 Many (Few) H 08/13/18 11:00 Ur Culture Indicated? YES (NO) A 08/13/18 11:00 DETECTED (Not Detect) A 08/14/18 08:40 Entero/Rhino (PCR) DETECTED (Not Detect) A 08/14/18 08:40 Consult Discharge Plan - Plan Referrals: Bandar Vázquez [Primary Care Provider] -
[2018-08-16] MEDS: Piperacillin/Tazobactam 3.375 GM in 0.9 % Sodium Chloride Mini Bag 100 ML IVPB SCH ×2 (00:21→09:31)
[2018-08-16] MEDS: *HR* Heparin 5,000 UNIT/ML VIAL SQ SCH (05:27)
[2018-08-16 07:58] VITALS: BP 124/91
[2018-08-16] MEDS: Aspirin 81 MG TAB.CHEW PO SCH (09:30)
[2018-08-16] MEDS: Sennosides 8.6 MG TABLET PO SCH (09:30)
[2018-08-16] MEDS: Multivit/Ca/Min/Fe/FA 1 TAB TABLET PO SCH (09:30)
[2018-08-16] MEDS: Cholecalciferol (D-3) 1,000 UNIT TABLET PO SCH (09:30)
[2018-08-16] MEDS: MOM Conc 10 ML UD.LIQ PO SCH (09:31)
[2018-08-16] MEDS: Dorzolamide OPTH 10 ML BOTTLE RIGHT EYE SCH (09:34)
[2018-08-16] MEDS: Latanoprost 2.5 ML BOTTLE BOTH EYES SCH (09:44)
--- NOTE | 2018-08-16 10:11 | Discharge Summary ---
Date of Encounter: 08/16/18 Time of Encounter: 10:00 - Discharge Diagnosis (1) Acute respiratory failure with hypoxia Priority: Primary Status: Acute Assessment and Plan: 77 year old female with pmh of dementia, hypertension, [facility] resident presenting with worsening lethargy and confusion today. Patient was noted to have a cough for the past couple of weeks and has been getting weaker and increasingly more lethargic over the past couple of days. Her daughter says that yesterday, she was barely able to raise her head up and respond to commands. She has also been less active. She was reportedly unresponsive this am and hypoxic and was therefore sent to the ER. She is not able to provide a lot of information due to her dementia. But at bedside she is more alert and more responsive on assessment She was assessed in with lethargy and hypoxic respiratory failure likely 2/2 to multifocal pneumonia. O2 sat was in the 80s on arrival. She improved on broad spectrum antibiotics. Respiratory panel also came back positive for entero virus and adenovirus. SHe is comfortable on room air. She had what appeared to be an acute stroke on CT but MRI head was negative. 35 minutes was spent discharging this patient (2) Sepsis Priority: Primary Status: Acute Assessment and Plan: Likely secndary to multifocal penumonia. Will cover for HCAP as pt is [facility] resident [facility] Qualifiers: Qualified Code(s): A41.9 - Sepsis, unspecified organism (3) Multifocal pneumonia Priority: Primary Status: Acute (4) Ischemic stroke Priority: Primary Status: Acute (5) Dementia Priority: Primary Status: Chronic Qualifiers: Dementia type: unspecified type Dementia behavioral disturbance: without behavioral disturbance Qualified Code(s): F03.90 - Unspecified dementia without behavioral disturbance (6) HTN (hypertension) Priority: Primary Status: Chronic Qualifiers: Hypertension type: essential hypertension Qualified Code(s): I10 - Essential (primary) hypertension (7) DVT prophylaxis Priority: Primary Status: Acute Hospital course: Ms. Perez is a 77 year old female - Time Spent with Patient Total time spent providing and/or coordinating discharge services: - Discharge Medications Prescriptions: New Aspirin 81 mg PO DAILY #30 tab.chew Continued Calcium Carbonate/Vitamin D3 [Calcium 500+D Tablet Chew] 1 each PO DAILY Bisacodyl [Gentle Laxative] 10 mg RC DAILY PRN PRN Reason: Constipation Brimonidine 0.2% [Alphagan] 1 drop RIGHT EYE TID MDD 2 Magnesium Hydroxide [Milk of Magnesia] 400 mg PO DAILY Memantine [Namenda] 10 mg PO BID Multivit-Min/Iron/Folic Acid/K [Adults Multivitamin Tablet] 1 tab PO DAILY Sennosides [Senna] 16.8 mg PO DAILY Simvastatin [Zocor] 10 mg PO DAILY Timolol Maleate 0.5% 1 drp BOTH EYES BID Travoprost [Travatan Z] 1 drp BOTH EYES DAILY Acetaminophen [Non-Aspirin] 325 mg PO Q6H PRN PRN Reason: Pain Mirtazapine 7.5 mg PO DAILY Sertraline [Zoloft] 50 mg PO DAILY Dorzolamide HCl 1 drop RIGHT EYE TID Home Medications: Calcium Carbonate/Vitamin D3 [Calcium 500+D Tablet Chew] 1 each PO DAILY 04/16/15 [History] Acetaminophen [Non-Aspirin] 325 mg PO Q6H PRN 08/13/18 [History] Bisacodyl [Gentle Laxative] 10 mg RC DAILY PRN 08/13/18 [History] Brimonidine 0.2% [Alphagan] 1 drop RIGHT EYE TID MDD 2 08/13/18 [History] Dorzolamide HCl 1 drop RIGHT EYE TID 08/13/18 [History] Magnesium Hydroxide [Milk of Magnesia] 400 mg PO DAILY 08/13/18 [History] Memantine [Namenda] 10 mg PO BID 08/13/18 [History] Mirtazapine 7.5 mg PO DAILY 08/13/18 [History] Multivit-Min/Iron/Folic Acid/K [Adults Multivitamin Tablet] 1 tab PO DAILY 08/13/18 [History] Sennosides [Senna] 16.8 mg PO DAILY 08/13/18 [History] Sertraline [Zoloft] 50 mg PO DAILY 08/13/18 [History] Simvastatin [Zocor] 10 mg PO DAILY 08/13/18 [History] Timolol Maleate 0.5% 1 drp BOTH EYES BID 08/13/18 [History] Travoprost [Travatan Z] 1 drp BOTH EYES DAILY 08/13/18 [History] Aspirin 81 mg PO DAILY #30 tab.chew 08/16/18 [Rx] Allergies/Adverse Reactions: Allergy/AdvReac Type Severity Reaction Status Date / Time Sulfa (Sulfonamide Allergy unknown Verified 10/06/17 19:33 Antibiotics) Date of admission: 08/13/18 18:54 Primary care physician: Bandar Vázquez Consults: 08/13/18 18:28 Consult to Neurology [CONS] Routine Consulting Provider: Neu[facility] Reason for Consult: confusion r/o stroke Call Completed: No 08/14/18 11:54 Consult to Physical Therapy [CONS] Routine Comment: Evaluate, develop and implement POC Reason for Consult: weakness Does patient have active BEDREST order?: No Is patient medically & hemodynamically stable?: Yes Patient assessed for mobility or mobilized this visit?: No - Constitutional Vitals: Temp Pulse Resp BP Pulse Ox 98.8 F 71 16 124/91 95 08/16/18 07:56 08/16/18 07:56 08/16/18 07:56 08/16/18 07:56 08/16/18 07:56 Exam: General appearance: Present: A&O X 3, no acute distress Head exam: Present: normocephalic Respiratory exam: Present: CTAB. Absent: accessory muscle use, rales, rhonchi, wheezes Cardiovascular exam: Present: RRR, +S1, +S2. Absent: diastolic murmur, gallop, rubs, systolic murmur GI/Abdominal exam: Soft, NT, ND, +BS Extremities exam: Absent: pedal edema Neurological exam: Present: alert, oriented X3, no focal deficits. Absent: altered - Patient Status Disposition: Transfer SNF Condition: Good - Discharge Instructions Follow Up With: Latonia Salas MD [Partnered Physician] - 10/04/18 3:30 pm Bandar Vázquez [Primary Care Provider] -
[2018-08-16] MEDS: Potassium Chloride Elixir 20 MEQ/15 ML UDC PO SCH ×2 (10:46→14:35)
--- NOTE | 2018-08-16 12:19 | Physician Discharge Referral ---
- Diagnosis (1) Acute respiratory failure with hypoxia Priority: Primary Status: Acute (2) Sepsis Priority: Primary Status: Acute (3) Multifocal pneumonia Priority: Primary Status: Acute (4) Ischemic stroke Priority: Primary Status: Acute (5) Dementia Priority: Primary Status: Chronic (6) HTN (hypertension) Priority: Primary Status: Chronic (7) DVT prophylaxis Priority: Primary Status: Acute - Transfer Medications Prescriptions: Aspirin 81 mg PO DAILY #30 tab.chew Home Medications: Calcium Carbonate/Vitamin D3 [Calcium 500+D Tablet Chew] 1 each PO DAILY 04/16/15 [History] Acetaminophen [Non-Aspirin] 325 mg PO Q6H PRN 08/13/18 [History] Bisacodyl [Gentle Laxative] 10 mg RC DAILY PRN 08/13/18 [History] Brimonidine 0.2% [Alphagan] 1 drop RIGHT EYE TID MDD 2 08/13/18 [History] Dorzolamide HCl 1 drop RIGHT EYE TID 08/13/18 [History] Magnesium Hydroxide [Milk of Magnesia] 400 mg PO DAILY 08/13/18 [History] Memantine [Namenda] 10 mg PO BID 08/13/18 [History] Mirtazapine 7.5 mg PO DAILY 08/13/18 [History] Multivit-Min/Iron/Folic Acid/K [Adults Multivitamin Tablet] 1 tab PO DAILY 08/13/18 [History] Sennosides [Senna] 16.8 mg PO DAILY 08/13/18 [History] Sertraline [Zoloft] 50 mg PO DAILY 08/13/18 [History] Simvastatin [Zocor] 10 mg PO DAILY 08/13/18 [History] Timolol Maleate 0.5% 1 drp BOTH EYES BID 08/13/18 [History] Travoprost [Travatan Z] 1 drp BOTH EYES DAILY 08/13/18 [History] Aspirin 81 mg PO DAILY #30 tab.chew 08/16/18 [Rx] Allergies/Adverse Reactions: Allergy/AdvReac Type Severity Reaction Status Date / Time Sulfa (Sulfonamide Allergy unknown Verified 10/06/17 19:33 Antibiotics) - Respiratory Orders Smoking Cessation: Smoking cessation has been advised. For more information, call the [place] Tobacco Quit Line at 1-811-QRSS-NOW. - Mobility Orders Ambulate - Rehabiliation Orders Rehab Orders: Evaluation for Physical Therapy, Evaluation for Occupational Therapy CERTIFICATION: I certify that the transfer of the above named patient to an Extended Care Facility is necessary for the continuing treatment of the diagnosis listed. The above information is true and accurate reflection of patient's current condition. Confidential - Redisclosure prohibited without a patient's written consent.
== END 2018-08-16 16:12 | DRG 871 ==
LOC: EMEROOARM 09:46 → 2NENU 18:54
PROVIDERS: ADMIT Internal Medicine Nephrology; ATTEND Internal Medicine Nephrology

== ENCOUNTER 2020-09-30 11:13 | Inpatient (IN) ==
[2020-09-30] MEDS ORDERED: Isovue-370 500 ML BOTTLE IVP ONE (11:27)
[2020-09-30 11:45] LABS: Prothrombin Time 12.1 Seconds (9.4-12.1)
[2020-09-30 11:47] LABS: Hematocrit 33.8 % (35.3-44.9); Hemoglobin 10.1 g/dL (11.5-15.4); Mean Corpuscular HGB Conc 29.9 g/dL (31.6-35.5); Mean Corpuscular Hemoglobin 26.8 pg (28.0-33.3); Mean Corpuscular Volume 89.7 fL (83.0-100.0); Mean Platelet Volume 11.8 fL (9.4-12.4); Platelet Count 261 K/mcL (140-400); Red Blood Count 3.77 M/mcL (3.82-4.97); Red Cell Distribution Width 14.8 % (11.5-14.5); White Blood Count 5.7 K/mcL (4.3-11.1)
[2020-09-30 12:06] LABS: BUN/Creatinine Ratio 21 (6-26); Blood Urea Nitrogen 14 mg/dL (8-23); Calcium 8.9 mg/dL (8.6-10.3); Carbon Dioxide 29 mEq/L (23-29); Chloride 106 mEq/L (98-107); Glucose 85 mg/dL (70-105); Osmolality,Calculated 290 (280-300); Sodium 140 mEq/L (136-145); eGFR For African Americans > 60 (> 60); eGFR For Non-African Americans > 60 (> 60)
[2020-09-30 12:07] LABS: Troponin I < 0.03 ng/mL (< 0.04)
[2020-09-30] MEDS ORDERED: Ondansetron 4 MG/2 ML VIAL IVP PRN (15:59)
[2020-09-30] MEDS ORDERED: Naloxone 0.4 MG/ML INJ IVP PRN (15:59)
[2020-09-30] MEDS: 0.9 % Sodium Chloride 1,000 ML IVC SCH (18:31)
[2020-09-30] MEDS ORDERED: Perflutren Lipid Microsphere 1.3 ML in 0.9 % Sodium Chloride 8.7 ML IVP PRN (21:01)
[2020-10-01 02:37] LABS: Basophils # 0.1 K/mcL (0.0-0.2); Basophils % 0.8 %; Eosinophils # 0.2 K/mcL (0.0-0.6); Eosinophils % 3.3 %; Hemoglobin 10.6 g/dL (11.5-15.4); Immature Granulocytes % 0.2 % (0-4); Lymphocytes % 31.5 %; Mean Corpuscular HGB Conc 31.2 g/dL (31.6-35.5); Mean Corpuscular Hemoglobin 27.2 pg (28.0-33.3); Mean Corpuscular Volume 87.4 fL (83.0-100.0); Mean Platelet Volume 11.6 fL (9.4-12.4); Monocytes # 0.7 K/mcL (0.0-1.3); Monocytes % 10.5 %; Neutrophils # 3.4 K/mcL (1.6-8.9); Platelet Count 265 K/mcL (140-400); Red Blood Count 3.89 M/mcL (3.82-4.97); Red Cell Distribution Width 14.8 % (11.5-14.5); Segmented Neutrophils % 53.7 %; White Blood Count 6.4 K/mcL (4.3-11.1)
[2020-10-01 02:58] LABS: BUN/Creatinine Ratio 15 (6-26); Blood Urea Nitrogen 9 mg/dL (8-23); Calcium 8.7 mg/dL (8.6-10.3); Carbon Dioxide 22 mEq/L (23-29); Chloride 106 mEq/L (98-107); Glucose 81 mg/dL (70-105); Osmolality,Calculated 280 (280-300); Potassium 3.7 mEq/L (3.5-5.1); Sodium 136 mEq/L (136-145); eGFR For African Americans > 60 (> 60); eGFR For Non-African Americans > 60 (> 60)
[2020-10-01] MEDS: 0.9 % Sodium Chloride 1,000 ML IVC SCH ×2 (05:44→17:38)
[2020-10-01] MEDS ORDERED: Aspirin 81 MG TAB.CHEW PO SCH (09:00)
[2020-10-01] MEDS: *HR* Heparin 5,000 UNIT/ML VIAL SQ SCH (17:46)
[2020-10-02] MEDS: *HR* Dextrose 50 % in Water (Vial) 50 ML VIAL IVP PRN ×3 (00:51→15:59)
[2020-10-02 04:56] LABS: Hematocrit 36.3 % (35.3-44.9); Hemoglobin 10.9 g/dL (11.5-15.4); Mean Corpuscular Hemoglobin 26.6 pg (28.0-33.3); Mean Corpuscular Volume 88.5 fL (83.0-100.0); Mean Platelet Volume 12.3 fL (9.4-12.4); Platelet Count 262 K/mcL (140-400); Red Cell Distribution Width 14.8 % (11.5-14.5); White Blood Count 5.2 K/mcL (4.3-11.1)
[2020-10-02 04:59] LABS: Chol/HDL Ratio 3.1 (0-4.9)
[2020-10-02 05:01] LABS: BUN/Creatinine Ratio 14 (6-26); Blood Urea Nitrogen 8 mg/dL (8-23); Calcium 8.8 mg/dL (8.6-10.3); Carbon Dioxide 23 mEq/L (23-29); Chloride 107 mEq/L (98-107); Glucose 69 mg/dL (70-105); Osmolality,Calculated 285 (280-300); Potassium 3.5 mEq/L (3.5-5.1); Sodium 139 mEq/L (136-145); eGFR For African Americans > 60 (> 60); eGFR For Non-African Americans > 60 (> 60)
[2020-10-02] MEDS: 0.9 % Sodium Chloride 1,000 ML IVC SCH (05:15)
[2020-10-02] MEDS: *HR* Heparin 5,000 UNIT/ML VIAL SQ SCH ×2 (05:15→17:58)
[2020-10-02 05:50] LABS: Estimated Average Glucose 123 mg/dl; Hemoglobin A1C 5.9 %
[2020-10-02] MEDS ORDERED: D5% in Water 1,000 ML IVC ONE (17:52)
[2020-10-02] MEDS: D5% in 0.9% NACL 1,000 ML IVC SCH (18:03)
[2020-10-03 01:44] LABS: Hemoglobin 11.3 g/dL (11.5-15.4); Mean Corpuscular HGB Conc 30.5 g/dL (31.6-35.5); Mean Corpuscular Hemoglobin 26.5 pg (28.0-33.3); Mean Corpuscular Volume 86.9 fL (83.0-100.0); Mean Platelet Volume 12.3 fL (9.4-12.4); Platelet Count 259 K/mcL (140-400); Red Blood Count 4.26 M/mcL (3.82-4.97); Red Cell Distribution Width 14.6 % (11.5-14.5); White Blood Count 7.4 K/mcL (4.3-11.1)
[2020-10-03 01:57] LABS: BUN/Creatinine Ratio 10 (6-26); Blood Urea Nitrogen 5 mg/dL (8-23); Calcium 8.7 mg/dL (8.6-10.3); Carbon Dioxide 23 mEq/L (23-29); Chloride 106 mEq/L (98-107); Glucose 109 mg/dL (70-105); Osmolality,Calculated 278 (280-300); Potassium 3.6 mEq/L (3.5-5.1); Sodium 135 mEq/L (136-145); eGFR For African Americans > 60 (> 60); eGFR For Non-African Americans > 60 (> 60)
[2020-10-03] MEDS: D5% in 0.9% NACL 1,000 ML IVC SCH ×2 (05:52→16:27)
[2020-10-03] MEDS: *HR* Heparin 5,000 UNIT/ML VIAL SQ SCH ×2 (05:53→17:16)
[2020-10-03] MEDS ORDERED: amLODIPine 5 MG TABLET PO SCH (16:30)
[2020-10-03] MEDS: lisinopriL 5 MG TABLET PO SCH (17:16)
[2020-10-03 19:13] LABS: % Iron Saturation 3 % (15-50); Iron 13 mcg/dL (50-170); Transferrin 296 mg/dL (203-362)
[2020-10-03 19:26] LABS: Ferritin 22 ng/mL (10-120)
[2020-10-04 01:21] LABS: Mean Corpuscular HGB Conc 30.3 g/dL (31.6-35.5); Mean Corpuscular Hemoglobin 26.4 pg (28.0-33.3); Mean Corpuscular Volume 87.2 fL (83.0-100.0); Mean Platelet Volume 12.3 fL (9.4-12.4); Platelet Count 246 K/mcL (140-400); Red Blood Count 3.67 M/mcL (3.82-4.97); Red Cell Distribution Width 14.7 % (11.5-14.5); White Blood Count 8.9 K/mcL (4.3-11.1)
[2020-10-04 01:28] LABS: Hemoglobin 9.7 g/dL (11.5-15.4)
[2020-10-04] MEDS: D5% in 0.9% NACL 1,000 ML IVC SCH ×2 (03:53→17:20)
[2020-10-04] MEDS: *HR* Heparin 5,000 UNIT/ML VIAL SQ SCH ×2 (06:17→17:20)
[2020-10-04] MEDS: Aspirin 81 MG TAB.CHEW PO SCH (08:23)
[2020-10-04] MEDS: lisinopriL 5 MG TABLET PO SCH (08:24)
[2020-10-04] MEDS ORDERED: Iron Sucrose Complex 400 MG in 0.9 % Sodium Chloride 250 ML IVPB ONE (10:40)
[2020-10-04] MEDS ORDERED: Ringers Solution, Lactated 1,000 ML IVC ONE ×2 (16:01→17:56)
[2020-10-04] MEDS ORDERED: Ringers Solution, Lactated 1,000 ML ONE (16:02)
[2020-10-04 21:16] LABS: Basophils % 0.2 %; Hematocrit 35.6 % (35.3-44.9); Hemoglobin 10.9 g/dL (11.5-15.4); Immature Granulocytes % 0.6 % (0-4); Lymphocytes % 5.9 %; Mean Corpuscular HGB Conc 30.6 g/dL (31.6-35.5); Mean Corpuscular Hemoglobin 26.6 pg (28.0-33.3); Mean Corpuscular Volume 86.8 fL (83.0-100.0); Monocytes # 0.7 K/mcL (0.0-1.3); Monocytes % 4.3 %; Neutrophils # 15.2 K/mcL (1.6-8.9); Platelet Count 216 K/mcL (140-400); Red Cell Distribution Width 14.8 % (11.5-14.5); White Blood Count 17.1 K/mcL (4.3-11.1)
[2020-10-04] MEDS: Piperacillin/Tazobactam 3.375 GM in 0.9 % Sodium Chloride Mini Bag 100 ML IVPB SCH (23:31)
[2020-10-05 02:07] LABS: Mean Corpuscular Hemoglobin 26.6 pg (28.0-33.3)
[2020-10-05 02:09] LABS: Hematocrit 34.8 % (35.3-44.9); Hemoglobin 10.2 g/dL (11.5-15.4); Immature Platelets 10.8 % (1.1-6.1); Mean Corpuscular HGB Conc 29.3 g/dL (31.6-35.5); Mean Corpuscular Volume 90.9 fL (83.0-100.0); Red Blood Count 3.83 M/mcL (3.82-4.97); Red Cell Distribution Width 15.2 % (11.5-14.5); White Blood Count 12.4 K/mcL (4.3-11.1)
[2020-10-05] MEDS: *HR* Heparin 5,000 UNIT/ML VIAL SQ SCH ×2 (05:37→18:43)
[2020-10-05] MEDS: D5% in 0.9% NACL 1,000 ML IVC SCH (06:21)
[2020-10-05] MEDS: Piperacillin/Tazobactam 3.375 GM in 0.9 % Sodium Chloride Mini Bag 100 ML IVPB SCH (08:03)
[2020-10-05] MEDS: Aspirin 81 MG TAB.CHEW PO SCH (10:03)
[2020-10-05 10:19] LABS: Albumin 2.5 g/dL (3.5-5.7); Albumin/Globulin Ratio 1.3 (1.1-2.2); Bilirubin,Direct 0.1 mg/dL (0.0-0.2); Bilirubin,Indirect 0.2 mg/dL (0.0-1.0); Bilirubin,Total 0.3 mg/dL (0.3-1.0); Total Protein 4.5 g/dL (6.4-8.9)
[2020-10-05] MEDS: Iron Sucrose Complex 250 MG in 0.9 % Sodium Chloride 250 ML IVPB SCH (13:19)
[2020-10-05 15:05] LABS: Bilirubin,Urine Negative (Negative); Blood,Urine Small (Negative); Clarity,Urine Clear (Clear); Color,Urine Light-Yellow (Yellow); Glucose,Urine (UA) Normal (Normal); Ketones,Urine Trace mg/dL (Negative); Leukocyte Esterase,Urine Large (Negative); Mucus,Urine Few per lpf (None-Few); Nitrite,Urine Negative (Negative); Protein,Urine 30 mg/dL (Neg-Trace); RBC,Urine 30-50 per hpf (0-3); Renal Epithelial Cells,Urine Few per hpf (None-Few); Specific Gravity,Urine 1.027 (1.010-1.025); Squamous Epithelial Cell,Urine Few per hpf (None-Few); Transitional Epi Cells,Urine Few per hpf (None-Few); Urobilinogen,Urine Normal (Normal); WBC,Urine TNTC per hpf (0-3)
[2020-10-06] MEDS: *HR* Heparin 5,000 UNIT/ML VIAL SQ SCH ×2 (04:32→19:06)
[2020-10-06] MEDS: Aspirin 81 MG TAB.CHEW PO SCH (08:01)
[2020-10-06] MEDS: Iron Sucrose Complex 250 MG in 0.9 % Sodium Chloride 250 ML IVPB SCH (08:03)
[2020-10-06 13:49] LABS: Hematocrit 29.2 % (35.3-44.9); Hemoglobin 8.9 g/dL (11.5-15.4); Mean Corpuscular HGB Conc 30.5 g/dL (31.6-35.5); Mean Corpuscular Hemoglobin 27.1 pg (28.0-33.3); Mean Corpuscular Volume 88.8 fL (83.0-100.0); Mean Platelet Volume 12.2 fL (9.4-12.4); Platelet Count 189 K/mcL (140-400); Red Blood Count 3.29 M/mcL (3.82-4.97); Red Cell Distribution Width 15.3 % (11.5-14.5); White Blood Count 7.6 K/mcL (4.3-11.1)
[2020-10-07 02:20] LABS: Hematocrit 29.7 % (35.3-44.9); Hemoglobin 9.1 g/dL (11.5-15.4); Mean Corpuscular HGB Conc 30.6 g/dL (31.6-35.5); Mean Corpuscular Hemoglobin 26.8 pg (28.0-33.3); Mean Corpuscular Volume 87.6 fL (83.0-100.0); Mean Platelet Volume 12.8 fL (9.4-12.4); Platelet Count 189 K/mcL (140-400); Red Blood Count 3.39 M/mcL (3.82-4.97); Red Cell Distribution Width 15.4 % (11.5-14.5); White Blood Count 9.2 K/mcL (4.3-11.1)
[2020-10-07 02:40] LABS: BUN/Creatinine Ratio 13 (6-26); Blood Urea Nitrogen 6 mg/dL (8-23); Calcium 8.1 mg/dL (8.6-10.3); Carbon Dioxide 25 mEq/L (23-29); Chloride 105 mEq/L (98-107); Glucose 102 mg/dL (70-105); Osmolality,Calculated 284 (280-300); Sodium 138 mEq/L (136-145); eGFR For African Americans > 60 (> 60); eGFR For Non-African Americans > 60 (> 60)
[2020-10-07] MEDS: *HR* Heparin 5,000 UNIT/ML VIAL SQ SCH ×2 (05:06→18:05)
[2020-10-07] MEDS: Aspirin 81 MG TAB.CHEW PO SCH (08:49)
[2020-10-07] MEDS ORDERED: Potassium Chloride Elixir 20 MEQ/15 ML UDC PO ONE (10:52)
[2020-10-07 11:07] LABS: Magnesium 1.8 mg/dL (1.6-2.6)
[2020-10-08 03:29] LABS: Basophils # 0.1 K/mcL (0.0-0.2); Basophils % 0.8 %; Eosinophils # 0.4 K/mcL (0.0-0.6); Eosinophils % 5.5 %; Hematocrit 33.3 % (35.3-44.9); Hemoglobin 10.2 g/dL (11.5-15.4); Immature Granulocytes % 0.3 % (0-4); Lymphocytes # 2.1 K/mcL (0.6-4.6); Lymphocytes % 31.8 %; Mean Corpuscular HGB Conc 30.6 g/dL (31.6-35.5); Mean Corpuscular Hemoglobin 27.1 pg (28.0-33.3); Mean Corpuscular Volume 88.6 fL (83.0-100.0); Mean Platelet Volume 12.8 fL (9.4-12.4); Monocytes # 0.7 K/mcL (0.0-1.3); Monocytes % 11.1 %; Neutrophils # 3.3 K/mcL (1.6-8.9); Platelet Count 225 K/mcL (140-400); Red Blood Count 3.76 M/mcL (3.82-4.97); Red Cell Distribution Width 15.8 % (11.5-14.5); Segmented Neutrophils % 50.5 %; White Blood Count 6.5 K/mcL (4.3-11.1)
[2020-10-08 03:50] LABS: BUN/Creatinine Ratio 15 (6-26); Blood Urea Nitrogen 9 mg/dL (8-23); Calcium 8.6 mg/dL (8.6-10.3); Carbon Dioxide 29 mEq/L (23-29); Chloride 106 mEq/L (98-107); Glucose 93 mg/dL (70-105); Osmolality,Calculated 288 (280-300); Potassium 3.9 mEq/L (3.5-5.1); Sodium 140 mEq/L (136-145); eGFR For African Americans > 60 (> 60); eGFR For Non-African Americans > 60 (> 60)
[2020-10-08 03:54] VITALS: O2SAT 96
[2020-10-08] MEDS: *HR* Heparin 5,000 UNIT/ML VIAL SQ SCH (05:34)
[2020-10-08 07:01] VITALS: BP 132/102; PULSE 87; TEMP 98.2
== END 2020-10-08 11:20 | disposition hospice, inpatient (51) | DRG 64 ==
LOC: 2ANU 11:13 → EMEROOARM 11:13 → 2NENU 12:51 → SUATTDRO 14:26 → 2NENU 15:13
PROVIDERS: ADMIT Internal Medicine; ATTEND Internal Medicine